=== PATIENT | female | born 1955 | race Caucasian/White ===

== ENCOUNTER 2017-08-15 17:43 | Emergency (ER) | payer BC ==
--- OUTSIDE RECORDS SUMMARY | 2017-08-15 18:09 | XMS REPORT ---
:1955 External Reference #:[id number] Author Organization [facility] Address [address] [place] [address] Phone [phone] Care Team Providers Name Role Phone Sosa Arteaga Care Team Information Director Metabolism Unavailable Sosa Arteaga Primary Care Physician Unavailable Payers Type Date Identification Numbers Payment Provider Subscriber Commercial Effective: Policy Number: [facility] Leyla Brito 2015 [id number] PayID: [id number] [address] [address] [place] [address] Medigap Part B Expires: 2015 Policy Number: [facility] Lauren Brito [id number] Exchange PayID: [id number] [address] [address] [place] [address] Problems Description No Information Family History Date Family Member(s) Problem(s) Comments First Brother due to Natural Causes () Social History Type Date Description Comments Marital Status moved to [place] in January 2015 to live closer to daughter Cigarette Use Never Smoked Cigarettes ETOH Use Denies alcohol use Allergies, Adverse Reactions, Alerts Date Description Reaction Status Severity Comments 09/07/2015 NKDA active 09/07/2015 Adhesives active Medications Medication Date Status Form Strength Qnty SIG Indications Ordering Provider Levothyroxine 07/11 Active Tablets 175mcg 90tab take one E03.9 s tablet by Markell, mouth [employer]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 as needed Clotrimazole/Bet 07/13 Active Cream 1-0.05% 45gm apply thin B35.4 Sosa LLeonardo amethasone /2016 layer Eliot Arteagaionate twice M.DLeonardo daili chest wall area. Albuterol 05/09 Active Nebulizer (2.5mg/3M 75ml inhale the J20.9 Mary Sulfate /2015 L) 0.083% contents Mala, of one Afnp-C vial via nebulizer four times a day as needed Aspirin Ec 12/[address] 81mg 100ta 1 by mouth Sosa LLeonardo bs every day Silvano Arteaga Hydrocodone-Acet 10/19 Active Tablets 5-325mg 30tab 1 by mouth J06.9 Raisa aminophen s 3 times Baldwin, daily as M.D. needed pain nt Escitalopram 09/07 Active Tablets 20mg 90tab 1 by mouth Cora Oxalate s daily MarkellSADIE palomino Metformin HCL 09/07 Active Tablets 500mg 180ta Take One Sosa LLeonardo bs Tablet By Adriel Arteaga M.DLeonardo Twice A Day Amitriptyline Active Tablets 100mg 270ta 3 tablets Cora HCL / bs at bedtime ASDIE Guillaume Glipizide XL Active Tablets ER 2.5mg 100ta Take One Sosa L. / 24HR bs Tablet By Adriel Arteaga M.DLeonardo Every Day Dulera Active Aerosol 200-5mcg/ 2 puff R05 Unknown /0000 Act twice a day Levothyroxine 03/19 Hx Tablets 175mcg 100ta take one E11.9 Sosa LLeonarod Sodium bs tablet by Chandler - mouth M.D. 07/11 every day /2016 Proair HFA 03/06 Hx Aerosol 108(90Bas 17gm 2 puffs Sosa LLeonardo e) every 4 Sarah Arteaga mcg/Act hours as M.D. 07/10 needed Azithromycin 03/06 Hx Tablets 250mg 6tabs 2 by mouth R05 Sosa L. /2016 today. 1 Chandler, - by mouth M.D. 07/10 daily x Trazodone HCL 10/29 Hx Tablets 50mg 60tab 1 -2 by G47.00 Cora s mouth Markell, - every COMPUTER COMPOSITOR 03/06 night at 2017 bedtime as needed insomnia Doxycycline 10/29 Hx Capsules 100mg 28cap take one J01.90 Cora Hyclate s capsule by Markell, - mouth COMPUTER COMPOSITOR 03/06 twice a /2016 day Cyclobenzaprine 07/16 Hx Tablets 10mg 20tab 1 by mouth [facility] Afnp-C 07/16 day as needed back pain Metaxalone 07/16 Hx Tablets 400mg 20tab 1 po tid Drea s prn back [facility], - pain Afnp-C 07/23 Naprosyn 06/08 Hx Tablets 500mg 20tab 1 twice a Joaquín Rico s day with Monica, - food M.D. 07/10 Symbicort 05/16 Hx Aerosol 160-4.5mc 6gm 2 puff g/Act twice a Mala, - day Afnp-C 10/29 Prednisone 05/09 Hx Tablets 20mg 9tabs 2 x 3 days J20.9 ,1 x 3 Mala, - days Afnp-C 05/15 Levofloxacin 05/09 Hx Tablets 500mg 7tabs 1 by mouth J20.9 every day Mala, - x 7 Afnp-C 05/16 Hydrocodone-Acet 05/09 Hx Tablets 5-325mg 120ta 1-2 tabs R51 Cora aminophen bs every 6 Markell, - hours as COMPUTER COMPOSITOR 07/10 needed for pain Levothyroxine 12/26 Hx Tablets 200mcg 90tab 1 by mouth E11.9 Sosa L. Sodium /2015 s every day Chandler - M.DLeonardo 03/19 Vitamin D 12/26 Hx Capsules [id number] 12cap take 1 E55.9 Sosa L. (Ergocalciferol) s capsule by Chandler, - mouth once M.D. 07/10 weekly for 8 weeks. Lisinopril 12/26 Hx Tablets 2.5mg 30tab 1 by mouth E11.9 Sosa L. s every day Sarah Arteaga M.D. 03/06 Azithromycin 10/19 Hx Tablets 250mg 6tabs take 2 J06.9 tablets by Robert, - mouth COMPUTER COMPOSITOR 12/26 today take 1 tablet daily for next 4 days Cheratussin ac 10/19 Hx Syrup 100-10mg/ 120ml 1-2 J06.9 5ML teaspoon Robert, - every 4 COMPUTER COMPOSITOR 12/26 hours needed Dulera 10/19 Hx Aerosol 200-5mcg/ 8.800 2 puff J06.9 Act gm twice a Mala, - day Afnp-C 05/16 Ciloxan 10/19 Hx Solution 0.3% 5ml 2 drop J06.9 affected Robert, - eye(s) COMPUTER COMPOSITOR 12/26 times a day for 2d then twice a day until clear december fill with generic Amoxicillin/Clav 09/21 Hx Tablets 875-125mg 20tab 1 by mouth J01.80 Sosa Pina ulrita /2015 s twice a Chandler Potassium - day x 1o M.DLeonardo No Active 09/07 Hx Unknown Medications /2015 - 09/07 Hydrocodone-Acet 09/07 Hx Tablets 5-325mg 60tab 1 by mouth M25.572 Sosa Pina aminophen /2015 s 4 times Chandler, - daily prn M.DLeonardo 10/19 pain Levothyroxine Hx Tablets 100mcg 100ta 1 by mouth Sosa Pina Sodium /0000 bs every day Sarah Arteaga M.D. 08/06 Levothyroxine Hx Tablets 88mcg 100ta 1 by mouth Sosa LLeonardo Sodium /0000 bs every day Sarah Arteaga M.D. 08/06 Alprazolam Hx Tablets 0.5mg 1-2 Four Unknown /0000 Dispers Times A - Day as 04/17 needed for anxiety Proair HFA 00/ Hx Aerosol 108(90Bas 2 puffs Unknown /0000 e) every 4 - mcg/Act hours as 10/29 Diazepam Hx Tablets 10mg Unknown /0000 - 03/06 Ventolin HFA 00 Hx Aerosol 108(90Bas inhale two R05 Unknown /0000 e) puffs by - mcg/Act mouth 03/06 every day /2016 to four times a day as directed Immunizations CPT Code Status Date Vaccine Lot # [id number] Given 07/11/2017 Pneumococcal Immunization [id number] Given 07/11/2017 Influenza vac quadrivalent preservative free 3yrs [id number] and up Vital Signs Date Vital Result Comment 08/14/2017 BP Systolic 168 mmHg BP Diastolic 92 mmHg Heart Rate 82 /min Body Temperature 97.8 F O2 % BldC Oximetry 90 % 07/11/2017 BP Systolic 148 mmHg BP Diastolic 84 mmHg Heart Rate 96 /min Body Temperature 97.7 F 03/06/2017 BP Systolic 130 mmHg BP Diastolic 80 mmHg Heart Rate 80 /min Body Temperature 98.1 F Respiratory Rate 18 /min 10/29/2016 BP Systolic 156 mmHg BP Diastolic 86 mmHg Heart Rate 96 /min Body Temperature 97.7 F 08/27/2016 BP Systolic 144 mmHg BP Diastolic 82 mmHg Heart Rate 92 /min Body Temperature 97.9 F Respiratory Rate 18 /min 08/06/2016 BP Systolic 144 mmHg BP Diastolic 84 mmHg Heart Rate 78 /min Body Temperature 97.5 F 07/16/2016 BP Systolic 144 mmHg BP Diastolic 80 mmHg Heart Rate 90 /min Body Temperature 97.3 F 06/08/2016 BP Systolic 178 mmHg BP Diastolic 98 mmHg Heart Rate 80 /min Body Temperature 98.5 F O2 % BldC Oximetry 98 % 05/09/2016 BP Systolic 150 mmHg BP Diastolic 70 mmHg Heart Rate 85 /min Body Temperature 97.5 F Respiratory Rate 26 /min O2 % BldC Oximetry 91 % 04/18/2016 BP Systolic 144 mmHg BP Diastolic 82 mmHg Heart Rate 80 /min Body Temperature 97.9 F Respiratory Rate 20 /min O2 % BldC Oximetry 97 % 03/06/2016 BP Systolic 140 mmHg BP Diastolic 80 mmHg Heart Rate 68 /min Body Temperature 98.3 F Respiratory Rate 20 /min 12/27/2015 BP Systolic 140 mmHg BP Diastolic 76 mmHg Heart Rate 76 /min Body Temperature 98.1 F Respiratory Rate 16 /min 10/19/2015 BP Systolic 136 mmHg BP Diastolic 80 mmHg Heart Rate 92 /min Body Temperature 98.2 F Respiratory Rate 22 /min O2 % BldC Oximetry 94 % 09/21/2015 BP Systolic 120 mmHg BP Diastolic 80 mmHg Heart Rate 80 /min Body Temperature 98.0 F Respiratory Rate 18 /min 09/07/2015 BP Systolic 110 mmHg BP Diastolic 80 mmHg Heart Rate 80 /min Body Temperature 99.0 F Respiratory Rate 18 /min Results Test Date Test Result H/L Range Note CBC Auto Diff 08/14/2017 White Blood Count 11.1 10^3/uL High 3.5-10.8 Red Blood Count 4.75 10^6/uL 4.0-5.4 Hemoglobin 14.0 g/dL 12.0-16.0 Hematocrit 42 % 35-47 Mean Corpuscular Volume 89 fL 80-97 Mean Corpuscular Hemoglobin 29 pg 27-31 Mean Corpuscular HGB Conc 33 g/dL 31-36 Red Cell Distribution Width 13 % 10.5-15 Platelet Count 263 10^3/uL 150-450 Mean Platelet Volume 8 um3 7.4-10.4 Abs Neutrophils 5.9 10^3/uL 1.5-7.7 Abs Lymphocytes 4.2 10^3/uL 1.0-4.8 Abs Monocytes 0.6 10^3/uL 0-0.8 Abs Eosinophils 0.3 10^3/uL 0-0.6 Abs Basophils 0.1 10^3/uL 0-0.2 Abs Nucleated RBC 0.01 10^3/uL Granulocyte % 53.6 % 38-83 Lymphocyte % 37.6 % 25-47 Monocyte % 5.4 % 1-9 Eosinophil % 2.7 % 0-6 Basophil % 0.7 % 0-2 Nucleated Red Blood Cells % 0 Laboratory test finding 08/14/2017 Troponin I 0.00 ng/mL <0.04 1 Comp Metabolic Panel 08/14/2017 Sodium 137 mmol/L 133-145 Potassium 4.5 mmol/L 3.5-5.0 Chloride 100 mmol/L Low 101-111 Co2 Carbon Dioxide 32 mmol/L 22-32 Anion Gap 5 mmol/L 2-11 Glucose 111 mg/dL High 70-100 Blood Urea Nitrogen 14 mg/dL 6-24 Creatinine 0.87 mg/dL 0.51-0.95 BUN/Creatinine Ratio 16.1 8-20 Calcium 9.1 mg/dL 8.6-10.3 Total Protein 6.8 g/dL 6.4-8.9 Albumin 3.9 g/dL 3.2-5.2 Globulin 2.9 g/dL 2-4 Albumin/Globulin Ratio 1.3 1-3 Total Bilirubin 0.40 mg/dL 0.2-1.0 Alkaline Phosphatase 97 U/L 34-104 Alt 26 U/L 7-52 Ast 21 U/L 13-39 Egfr Non- 65.8 >60 Egfr 84.6 >60 2 Laboratory test finding 07/11/2017 Hemoglobin A1c (Fma) 6.6 % High 4.1- 5.7 Ua - Micro (Fma) 07/11/2017 Appearance clear Color yellow Glucose, Urine (Fma/CMC/CTX) - Bilirubin - Ketones - SP Grav <=1.005 Blood - PH 6.5 Protein - Urobil 0.2 Nitrite - Leukocytes (Fma/CMC/Centrex) small Hyaline - /Lpf Granular - /Lpf WBC (Fma,Centrex) 2-4 RBC 0-1 Mucus - /Lpf Epith few /Lpf Bacteria trace /Hpf Amorphous - /Lpf Crystals, Fluid (Fma/CMC/CTX) - Laboratory test finding 07/11/2017 TSH 6.04 mIU/L High 0.50-6.00 Free T4 0.97 ng/dL 0.75-1.54 Complete Blood Count 07/11/2017 WBC 11.5 x10^3/UL High 3.6-9.6 RBC 4.82 x10^6/UL 3.90-5.70 HGB 14.2 g/dL 12.1-17.2 HCT 43 % 36-50 MCV 89.0 fL 82.2-97.4 MCH 29.4 pg 27.6-33.3 MCHC 33.0 g/dL 33.0-35.5 RDW 14.2 % High 11.6-13.7 PLT 301 x10^3/UL 150-400 MPV 7.2 fL Low 7.4-10.4 Gran # 7.1 x10^3/UL 1.5-7.2 Lymph# 4.0 x10^3/UL 0.7-4.9 Mccracken# 0.4 x10^3/UL 0.1-0.9 Gran % 60.3 % 42.2-75.2 Lymph % 35.5 % 20.5-51.1 Mccracken% 4.2 % 1.7-9.3 Comprehensive Metabolic Prof 07/11/2017 Sodium 143 mEq/L 134-149 Potassium 4.0 mEq/L 3.6-5.5 Chloride 100 mEq/L 94-112 Carbon Dioxide 29 mEq/L 21-32 Glucose 109 mg/dL High 70-105 3 BUN 11 mg/dL 6-26 Creatinine 0.9 mg/dL 0.6-1.4 BUN/Creat Ratio 12.2 CALC 8.0-36.0 Calcium 9.1 mg/dL 8.6-10.2 Total Protein 7.1 g/dL 6.4-8.3 Albumin 4.3 g/dL 3.8-5.5 Globulin 2.8 g/dL 2.0-4.8 A/G Ratio 1.5 CALC 0.6-2.3 Alk. Phosphatase 107 U/L 30-110 Alt (SGPT) 38 U/L High 7-35 4 Ast (Sgot) 33 U/L 5-34 Total Bilirubin 0.2 mg/dL 0.2-1.3 GFR Non- >60 ml/min/1.73m^ >=60 GFR >60 ml/min/1.73m^ >=60 Laboratory test finding 03/06/2017 Microalb, Random 10.4 mg/L 0.5-37 (Fma/CMC/CTX) Hemoglobin A1c (Fma) 6.5 % % High 4.1-5.7 Lipid Profile 03/06/2017 Cholesterol 214 mg/dL High 120-200 Triglycerides 181 mg/dL 30-200 HDL Cholesterol 41 mg/dL 30-85 LDL (Calculated) 137 CALC High 0-129 VLDL Cholesterol 36 mg/dL 0-50 HDL Risk Factor 5.2 CALC High 0.0-4.4 Laboratory test finding 03/06/2017 TSH 0.08 mIU/L Low 0.50-6.00 5 Complete Blood Count 03/06/2017 WBC 9.3 x10^3/UL 3.6-9.6 RBC 4.99 x10^6/UL 3.90-5.70 HGB 14.7 g/dL 12.1-17.2 HCT 44 % 36-50 MCV 88.0 fL 82.2-97.4 MCH 29.4 pg 27.6-33.3 MCHC 33.3 g/dL 33.0-35.5 RDW 13.8 % High 11.6-13.7 PLT 295 x10^3/UL 150-400 MPV 7.1 fL Low 7.4-10.4 Gran # 5.9 x10^3/UL 1.5-7.2 Lymph# 2.8 x10^3/UL 0.7-4.9 Mccracken# 0.6 x10^3/UL 0.1-0.9 Gran % 63.0 % 42.2-75.2 Lymph % 30.2 % 20.5-51.1 Mccracken% 6.8 % 1.7-9.3 Comprehensive Metabolic Prof 03/06/2017 Sodium 138 mEq/L 134-149 Potassium 4.9 mEq/L 3.6-5.5 Chloride 98 mEq/L 94-112 Carbon Dioxide 27 mEq/L 21-32 Glucose 117 mg/dL High 70-105 6 BUN 9 mg/dL 6-26 Creatinine 0.8 mg/dL 0.6-1.4 BUN/Creat Ratio 11.3 CALC 8.0-36.0 Calcium 9.4 mg/dL 8.6-10.2 Total Protein 6.7 g/dL 6.4-8.3 Albumin 4.2 g/dL 3.8-5.5 Globulin 2.5 g/dL 2.0-4.8 A/G Ratio 1.7 CALC 0.6-2.3 Alk. Phosphatase 104 U/L 30-110 Alt (SGPT) 30 U/L 7-35 Ast (Sgot) 23 U/L 5-34 Total Bilirubin 0.4 mg/dL 0.2-1.3 GFR Non- >60 ml/min/1.73m^ >=60 GFR >60 ml/min/1.73m^ >=60 Laboratory test finding 08/06/2016 Antinuclear Antibodies, Ifa Negative 7, 8 Laboratory test finding 08/06/2016 Sedimentation Rate 16MM Lyme, Western Blot, Serum 04/18/2016 IgG P93 Ab. Absent 9 IgG P66 Ab. Absent 9 IgG P58 Ab. Absent 9 IgG P45 Ab. Present 9 IgG P41 Ab. Absent 9 IgG P39 Ab. Absent 9 IgG P30 Ab. Absent 9 IgG P28 Ab. Absent 9 IgG P23 Ab. Absent 9 IgG P18 Ab. Absent 9 Lyme IgG WB Interp. Negative 9, 10 IgM P41 Ab. Absent 9 IgM P39 Ab. Absent 9 IgM P23 Ab. Absent 9 Lyme IgM WB Interp. Negative 9, 11 Laboratory test finding 02/29/2016 TSH 3.96 mIU/L 0.50-6.00 12 Free T4 1.01 ng/dL 0.75-1.54 Lipid Profile 02/29/2016 Cholesterol 232 mg/dL High 120-200 Triglycerides 201 mg/dL High 30-200 HDL Cholesterol 33 mg/dL 30-85 LDL (Calculated) 159 CALC High 0-129 VLDL Cholesterol 40 mg/dL 0-50 HDL Risk Factor 7.0 CALC High 0.0-4.4 Comprehensive Metabolic Prof 01/10/2016 Sodium 140 mEq/L 134-149 Potassium 4.4 mEq/L 3.6-5.5 Chloride 95 mEq/L 94-112 Carbon Dioxide 30 mEq/L 21-32 Glucose 122 mg/dL High 70-105 13 BUN 13 mg/dL 6-26 Creatinine 1.0 mg/dL 0.6-1.4 BUN/Creat Ratio 13.0 CALC 8.0-36.0 Calcium 8.9 mg/dL 8.6-10.2 Total Protein 6.8 g/dL 6.4-8.3 Albumin 4.1 g/dL 3.8-5.5 Globulin 2.7 g/dL 2.0-4.8 A/G Ratio 1.5 CALC 0.6-2.3 Alk. Phosphatase 114 U/L High 30-110 14 Alt (SGPT) 55 U/L High 7-35 15 Ast (Sgot) 44 U/L High 5-34 16 Total Bilirubin 0.2 mg/dL 0.2-1.3 GFR Non- 60 ml/min/1.73m^ >=60 GFR >60 ml/min/1.73m^ >=60 Complete Blood Count 10/19/2015 WBC 9.6 x10^3/UL 3.6-9.6 RBC 4.45 x10^6/UL 3.90-5.70 HGB 13.7 g/dL 12.1-17.2 HCT 40 % 36-50 MCV 91.0 fL 82.2-97.4 MCH 30.8 pg 27.6-33.3 MCHC 33.9 g/dL 33.0-35.5 RDW 14.1 % High 11.6-13.7 PLT 249 x10^3/UL 150-400 MPV 6.8 fL Low 7.4-10.4 Gran # 5.8 x10^3/UL 1.5-7.2 Lymph# 3.3 x10^3/UL 0.7-4.9 Mccracken# 0.5 x10^3/UL 0.1-0.9 Gran % 59.3 % 42.2-75.2 Lymph % 34.8 % 20.5-51.1 Mccracken% 5.9 % 1.7-9.3 Ebv Acute Infection 10/19/2015 Ebv Ab Vca, IgM >160.0 U/mL High 0.0- 35.9 9, 17 Antibodies Profile Ebv Early Antigen Ab, IgG 69.9 U/mL High 0.0-8.9 9, 18 Ebv Ab Vca, IgG 186.0 U/mL High 0.0-17.9 9, 19 Ebv Nuclear Antigen Ab, IgG 161.0 U/mL High 0.0-17.9 9, 20 Interpretation: See Comment: 9, 21 Laboratory test finding 09/26/2015 TSH 19.38 mIU/L High 0.50-6.00 22 Free T4 0.86 ng/dL 0.75-1.54 Vitamin D25 18 Low 30-100 23 Laboratory test finding 09/26/2015 Hemoglobin A1c (Fma) 6.8 % High 4.1- 5.7 Complete Blood Count 09/26/2015 WBC 10.7 x10^3/UL High 3.6-9.6 24 RBC 4.38 x10^6/UL 3.90-5.70 HGB 13.0 g/dL 12.1-17.2 HCT 40 % 36-50 MCV 91.0 fL 82.2-97.4 MCH 29.8 pg 27.6-33.3 MCHC 33.0 g/dL 33.0-35.5 RDW 14.0 % High 11.6-13.7 PLT 275 x10^3/UL 150-400 MPV 6.2 fL Low 7.4-10.4 Gran # 7.2 x10^3/UL 1.5-7.2 Lymph# 3.1 x10^3/UL 0.7-4.9 Mccracken# 0.4 x10^3/UL 0.1-0.9 Gran % 66.3 % 42.2-75.2 Lymph % 29.2 % 20.5-51.1 Mccracken% 4.5 % 1.7-9.3 Lipid Profile 09/26/2015 Cholesterol 228 mg/dL High 120-200 Triglycerides 212 mg/dL High 30-200 HDL Cholesterol 40 mg/dL 30-85 LDL (Calculated) 146 CALC High 0-129 VLDL Cholesterol 42 mg/dL 0-50 HDL Risk Factor 5.7 CALC High 0.0-4.4 Comprehensive Metabolic Prof 09/26/2015 Sodium 136 mEq/L 134-149 Potassium 3.8 mEq/L 3.6-5.5 Chloride 94 mEq/L 94-112 Carbon Dioxide 31 mEq/L 21-32 Glucose 142 mg/dL High 70-105 BUN 18 mg/dL 6-26 Creatinine 0.9 mg/dL 0.6-1.4 BUN/Creat Ratio 20.0 CALC 8.0-36.0 Calcium 9.3 mg/dL 8.6-10.2 Total Protein 7.0 g/dL 6.4-8.3 Albumin 4.0 g/dL 3.8-5.5 Globulin 3.0 g/dL 2.0-4.8 A/G Ratio 1.3 CALC 0.6-2.3 Alk. Phosphatase 118 U/L High 30-110 Alt (SGPT) 56 U/L High 7-35 Ast (Sgot) 73 U/L High 5-34 Total Bilirubin 0.3 mg/dL 0.2-1.3 GFR Non- >60 ml/min/1.73m^ >=60 GFR >60 ml/min/1.73m^ >=[address] ARTEAGA [phone] PATIENT CELL NUMBER [phone] ARTEAGA by [id number] at [phone] on 08/14/17. Results read back accurately. 2 Because ethnic data is not always readily available, this report includes an eGFR for both -Americans and non- Americans. The National Kidney Disease Education Program (NKDEP) does not endorse the use of the MDRD equation for patients that are not between the ages of 18 and 70, are , have extremes of body size, muscle mass, or nutritional status, or are non- or non-. According to the National Kidney Foundation, irrespective of diagnosis, the stage of the disease is based on the level of kidney function: Stage Description GFR(mL/min/1.73 m(2)) 1 Kidney damage with normal or decreased GFR 90 2 Kidney damage with mild decrease in GFR 60-89 3 Moderate decrease in GFR 30-59 4 Severe decrease in GFR 15-29 5 Kidney failure <15 (or dialysis) 3 RESULTS VERIFIED BY REPEAT ANALYSIS 4 RESULTS VERIFIED BY REPEAT ANALYSIS 5 RESULTS VERIFIED BY REPEAT ANALYSIS 6 consistent w/ previous results 7 1 sst 8 Negative <1:80 Borderline 1:80 Positive >1:80 9 1 SST 10 Positive: 5 of the following Borrelia-specific bands: 18,23,28,30,39,41,45,58, 66, and 93. Negative: No bands or banding patterns which do not meet positive criteria. 11 Note: An equivocal or positive EIA result followed by a negative Western Blot result is considered NEGATIVE. An equivocal or positive EIA result followed by a positive Western Blot is considered POSITIVE by the CDC. Positive: 2 of the following bands: 23,39 or 41 Negative: No bands or banding patterns which do not meet positive criteria. Criteria for positivity are those recommended by CDC/ASTPHLD. p23=Osp C, j07=[id number] Note: Sera from individuals with the following may cross react in the Lyme Western Blot assays: other spirochetal diseases (periodontal disease, leptospirosis, relapsing fever, yaws, and pinta); connective autoimmune (Rheumatoid Arthritis and Systemic Lupus Erythematosus and also individuals with Antinuclear Antibody); other infections ([place] Spotted Fever; Gladys-Cedillo Virus, and Cytomegalovirus). 12 FASTING early February. 13 NON-FASTING 14 consistent w/ previous results 15 consistent w/ previous results 16 consistent w/ previous results 17 Negative <36.0 Equivocal 36.0 - 43.9 Positive >43.9 18 Hepatitis A, Hepatitis C and HIV antibodies may cross-react with this assay. Negative < 9.0 Equivocal 9.0 - 10.9 Positive >10.9 19 Negative <18.0 Equivocal 18.0 - 21.9 Positive >21.9 20 Negative <18.0 Equivocal 18.0 - 21.9 Positive >21.9 21 EBV Interpretation Chart Interpretation EBV-IgM EA(D)-IgG VCA-IgG EBNA-IgG EBV Seronegative - - - - Early Phase + - - - Acute Primary + +or- + - Infection Convalescence/Past - +or- + + Infection Reactivated +or- + + + Infection + Antibody Present - Antibody Absent 22 RESULTS VERIFIED BY REPEAT ANALYSIS 23 RESULTS VERIFIED BY REPEAT ANALYSIS 24 RESULTS VERIFIED BY REPEAT ANALYSIS Procedures Date CPT Code Description Status Comment 08/14/2017 39662 Electrocardiogram Complete Completed 08/25/2016 Colonoscopy Completed never had one. declined 08/25/2016 Mammogram Completed unknown. They hurt too much due to large breasts. 06/08/2016 36139 Pulse Oximetry Completed 06/08/2016 86182 Electrocardiogram Complete Completed 05/09/2016 40969 Pulse Oximetry Completed 05/09/2016 84353 Nebulizer Treatment Completed Encounters Type Date Location Provider CPT E/M Dx Office Visit 07/11/2017 11:00a [facility] Office Cora Guillaume [facility] 76106 E03.9 R10.84 R11.0 Z23 E11.9 R82.99 Office Visit 03/06/2017 1:40p [facility] Office Sosa Arteaga M.D. 46643 E11.9 M79.601 R05 R19.7 B35.4 Office Visit 10/29/2016 9:30a [facility] Office Cora Guillaume [facility] 68893 J01.90 R05 G47.00 F34.1 Office Visit 08/27/2016 10:00a [facility] Office Cora Guillaume [facility] 42619 F43.0 R07.89 R07.82 R21 Office Visit 08/06/2016 11:30a [facility] Office Cora Guillaume [facility] 20852 R21 R07.82 R07.89 F43.0 Office Visit 07/16/2016 11:30a [facility] Office Cipriano Blue 17940 M54.6 R21 Office Visit 06/08/2016 12:20p [facility] Office Joaquín Anderson M.D. 32125 R05 M89.8x8 Office Visit 05/09/2016 10:15a [facility] Aminta Raya-C 77654 R05 J20.9 R51 J45.21 Office Visit 04/18/2016 10:20a [facility] Sosa Arteaga M.D. 05015 H92.03 A69.20 Office Visit 03/06/2016 3:00p [facility] Sosa Arteaga M.D. 94312 E03.9 E11.9 R03.0 Office Visit 12/27/2015 10:40a [facility] Office Sosa Arteaga M.D. 33140 E03.9 E11.9 E55.9 F44.81 E78.2 Office Visit 10/19/2015 9:30a [facility] Danelle Jones [facility] 62056 J06.9 Office Visit 09/21/2015 3:20p [facility] Office Sosa Arteaga M.D. 96062 J01.80 M79.672 R29.6 Office Visit 09/07/2015 1:00p [facility] Office Sosa Arteaga M.D. 77552 M25.572 F44.81 E11.9 E03.9 E55.9 Plan of Care 08/14/2017 - Sosa Arteaga M.D.R07.89 Other chest painComments:EKG - normal ekg. YOu efren go to the hospital to get bloodwork done to find out if you are having a heart attack. If it is positive you will need to go to the ER. Troponin negative. patient aware. Will get xrays tomorrow.F43.22 Adjustment disorder with anxietyComments:~B_~U_Wired for Healing~u_~b_, Suzy Tejada. Remapping the brain to REcover from Chronic and Mysterious illness.M54.12 Radiculopathy, cervical regionComments:possible problem in your neck. will order neck xray. and MRI of neck. take the hydrocodone for severe pain, otherwise you can use tylenol 500 mg and ibuprofen with food in your stomach. 8AllComments:~B_~U_Medication Management~b_~u_ Patient Understands medications she's taking? Yes No Are there Barriers to Adherence? Yes No Has the patient been asked about herbal supplements and therapies, and OTC meds? Yes No
[2017-08-15] MEDS ORDERED: HYDROmorphone INJ* 2 MG/ML CARPUJECT SYRINGE IV SLOW PU ONE (18:42)
[2017-08-15] MEDS ORDERED: Ketorolac INJ* 30 MG/ML 1 ML VIAL IV ONE (18:42)
--- NOTE | 2017-08-15 19:25 | RAD ---
INDICATION: Left arm pain COMPARISON: Cervical spine August 13, 2017 TECHNIQUE: Noncontrast axial source images was performed from the skull base to the thoracic inlet. Coronal and and sagittal reformatted images were generated. FINDINGS: Vertebrae: There is no fracture or acute focal bony lesion. Alignment: The craniocervical junction appears normal. The cervical vertebrae are normally aligned. Central Canal: There is a small central disc at C2-C3. C3-C4 shows posterior spondylitic ridge formation with disc/osteophyte complex. C4-C5 shows a small central disc herniation. C5-C6 shows moderate disc space narrowing with mild posterior spondylitic ridge formation and uncinate process spurring. C6-C7 and C7-T1 show no significant CT abnormalities. MR imaging is a more sensitive method to evaluate the canal and foramina in this patient with radicular symptoms. Intervertebral disc spaces: The disc spaces are maintained. Brain: The visualized brain appears unremarkable. Soft tissues: The visualized soft tissue elements of the neck are unremarkable. The prevertebral soft tissues appear normal. The lung apices are clear. IMPRESSION: NO ACUTE CT FINDINGS. MULTILEVEL DEGENERATIVE CHANGES OF THE CERVICAL SPINE DESCRIBED
[2017-08-15 19:27] LABS: Hematocrit 40 % (35-47); Hemoglobin 13.4 g/dl (12.0-16.0); Mean Corpuscular HGB Conc 33 g/dl (31-36); Mean Corpuscular Hemoglobin 30 pg (27-31); Mean Corpuscular Volume 89 fL (80-97); Mean Platelet Volume 8 um3 (7.4-10.4); Red Blood Count 4.55 10^6/ul (4.0-5.4); Red Cell Distribution Width 14 % (10.5-15); White Blood Count 10.8 10^3/ul (3.5-10.8)
[2017-08-15 19:43] LABS: Albumin 3.6 g/dL (3.2-5.2); Calcium 8.7 mg/dL (8.6-10.3); EGFR African American 78.3 (>60); EGFR Non-African American 60.9 (>60); Globulin 2.7 g/dL (2-4); Total Bilirubin 0.3 mg/dL (0.2-1.0); Total Protein 6.3 g/dL (6.4-8.9)
[2017-08-15 20:42] VITALS: BP 140/59
--- NOTE | 2017-08-15 21:53 | ED ---
Wally Carballo Stephanie, scribed for Javier Pérez MD on 08/15/17 at 2153 . Complex/Multi-Sys Presentation - HPI Summary HPI Summary: Pt is a 62 y/o F presenting to the ED with c/o intermittent CP that began 1 week ago. Symptoms include pain in the arm, hand pain, neck pain, headache, and diffuse pain throughout the left side of the body. The pt describes the pain as a severe ache. She lives with daily pain but it has worsened over the past week. Pt reports that the pain is excruciating and wakes her up at night. Pt has self-medicated with Excedrin migraine. Pt denies abd pain. - History Of Current Complaint Chief Complaint: EDChestWallPain Time Seen by Provider: 08/15/17 18:12 Hx Obtained From: Patient, Family/Gis Programmer Timing: Constant Associated Signs And Symptoms: Positive: Other - Positive: arm pain, hand pain, neck pain, headache, and diffuse pain throughout the left side of the body. Negative: abd pain - Allergies/Home Medications Allergies/Adverse Reactions: Allergies Allergy/AdvReac Type Severity Reaction Status Date / Time Adhesive Tape Allergy See Comment Verified 08/22/15 14:43 PMH/Surg Hx/FS Hx/Imm Hx Endocrine/Hematology History: Reports: Hx Diabetes - Type two, Hx Thyroid Disease - partial thyroidectomy Cardiovascular History: Denies: Hx Hypertension Respiratory History: Reports: Hx Asthma - WHEN PT HAS A COLD Denies: Hx Chronic Obstructive Pulmonary Disease (COPD) GI History: Denies: Hx Ulcer - Surgical History Surgery Procedure, Year, and Place: Partial thyroidectomy, C sections x2, Appendectomy, Right ovary and tube removal, Gallbladder Infectious Disease History: No Infectious Disease History: Reports: Hx Shingles - x3 left thigh, recent Denies: Hx Clostridium Difficile, Hx Hepatitis, Hx Human Immunodeficiency Virus (HIV), Hx of Known/Suspected MRSA, Hx Tuberculosis, Hx Known/Suspected VRE , Hx Known/Suspected VRSA, History Other Infectious Disease, Traveled Outside the [place] in Last 30 Days - Family History Known Family History: Positive: Hypertension, Diabetes - Social History Alcohol Use: Rare Substance Use Type: Reports: None Smoking Status (MU): Never Smoked Tobacco Review of Systems Negative: Fever Negative: Abdominal Pain Positive: Myalgia - pain in the arm, hand pain, neck pain, headache, and diffuse pain throughout the left side of the body All Other Systems Reviewed And Are Negative: Yes Physical Exam - Summary Physical Exam Summary: Appearance: Anxious, morbidly obese Skin: warm, dry, reflects adequate perfusion Head/face: normal Eyes: EOMI, RHETT ENT: normal Neck: supple, no midline tenderness in neck. Respiratory: CTA, breath sounds present Cardiovascular: RRR, pulses symmetrical Abdomen: non-tender, soft Bowel: present Musculoskeletal: Diffuse tenderness to palpation in arm without focal dermatome. , strength/ROM intact Neuro: normal, sensory motor intact, A&Ox3 Triage Information Reviewed: Yes Vital Signs On Initial Exam: Initial Vitals Temp Pulse Resp BP Pulse Ox 97.9 F 90 20 175/81 96 08/15/17 17:45 08/15/17 17:45 08/15/17 17:45 08/15/17 17:45 08/15/17 17:45 Vital Signs Reviewed: Yes - Saira Coma Scale Coma Scale Total: 15 Diagnostics - Vital Signs Vital Signs Temp Pulse Resp BP Pulse Ox 08/15/17 18:30 95 14 180/80 96 08/15/17 18:28 187/84 08/15/17 17:45 97.9 F 90 20 175/81 96 - Laboratory Lab Results: Lab Results 08/15/17 08/15/17 08/15/17 Range/Units 19:10 19:10 19:10 WBC 10.8 (3.5-10.8) 10^3/ul RBC 4.55 (4.0-5.4) 10^6/ul Hgb 13.4 (12.0-16.0) g/dl Hct 40 (35-47) % MCV 89 (80-97) fL MCH 30 (27-31) pg MCHC 33 (31-36) g/dl RDW 14 (10.5-15) % Plt Count 236 (150-450) 10^3/ul MPV 8 (7.4-10.4) um3 Neut % (Auto) 52.4 (38-83) % Lymph % (Auto) 38.2 (25-47) % [place] % (Auto) 5.5 (1-9) % Eos % (Auto) 3.2 (0-6) % Baso % (Auto) 0.7 (0-2) % Absolute Neuts (auto) 5.7 (1.5-7.7) 10^3/ul Absolute Lymphs (auto) 4.1 (1.0-4.8) 10^3/ul Absolute Monos (auto) 0.6 (0-0.8) 10^3/ul Absolute Eos (auto) 0.3 (0-0.6) 10^3/ul Absolute Basos (auto) 0.1 (0-0.2) 10^3/ul Absolute Nucleated RBC 0 10^3/ul Nucleated RBC % 0 Sodium 137 (133-145) mmol/L Potassium 4.0 (3.5-5.0) mmol/L Chloride 102 (101-111) mmol/L Carbon Dioxide 28 (22-32) mmol/L Anion Gap 7 (2-11) mmol/L BUN 13 (6-24) mg/dL Creatinine 0.93 (0.51-0.95) mg/dL Est GFR ( Amer) 78.3 (>60) Est GFR (Non-Af Amer) 60.9 (>60) BUN/Creatinine Ratio 14.0 (8-20) Glucose 154 H (70-100) mg/dL Lactic Acid (0.5-2.0) mmol/L Calcium 8.7 (8.6-10.3) mg/dL Total Bilirubin 0.30 (0.2-1.0) mg/dL AST 19 (13-39) U/L ALT 24 (7-52) U/L Alkaline Phosphatase 87 (34-104) U/L CK-MB (CK-2) 2.1 (0.6-6.3) ng/mL Troponin I 0.00 (<0.04) ng/mL B-Natriuretic Peptide 12 ( - 100) pg/mL Total Protein 6.3 L (6.4-8.9) g/dL Albumin 3.6 (3.2-5.2) g/dL Globulin 2.7 (2-4) g/dL Albumin/Globulin Ratio 1.3 (1-3) 08/15/ Range/Units 19:10 WBC (3.5-10.8) 10^3/ul RBC (4.0-5.4) 10^6/ul Hgb (12.0-16.0) g/dl Hct (35-47) % MCV (80-97) fL MCH (27-31) pg MCHC (31-36) g/dl RDW (10.5-15) % Plt Count (150-450) 10^3/ul MPV (7.4-10.4) um3 Neut % (Auto) (38-83) % Lymph % (Auto) (25-47) % [place] % (Auto) (1-9) % Eos % (Auto) (0-6) % Baso % (Auto) (0-2) % Absolute Neuts (auto) (1.5-7.7) 10^3/ul Absolute Lymphs (auto) (1.0-4.8) 10^3/ul Absolute Monos (auto) (0-0.8) 10^3/ul Absolute Eos (auto) (0-0.6) 10^3/ul Absolute Basos (auto) (0-0.2) 10^3/ul Absolute Nucleated RBC 10^3/ul Nucleated RBC % Sodium (133-145) mmol/L Potassium (3.5-5.0) mmol/L Chloride (101-111) mmol/L Carbon Dioxide (22-32) mmol/L Anion Gap (2-11) mmol/L BUN (6-24) mg/dL Creatinine (0.51-0.95) mg/dL Est GFR ( Amer) (>60) Est GFR (Non-Af Amer) (>60) BUN/Creatinine Ratio (8-20) Glucose (70-100) mg/dL Lactic Acid 2.2 H* (0.5-2.0) mmol/L Calcium (8.6-10.3) mg/dL Total Bilirubin (0.2-1.0) mg/dL AST (13-39) U/L ALT (7-52) U/L Alkaline Phosphatase (34-104) U/L CK-MB (CK-2) (0.6-6.3) ng/mL Troponin I (<0.04) ng/mL B-Natriuretic Peptide ( - 100) pg/mL Total Protein (6.4-8.9) g/dL Albumin (3.2-5.2) g/dL Globulin (2-4) g/dL Albumin/Globulin Ratio (1-3) Result Diagrams: 08/15/17 19:10 08/15/17 19:10 Lab Statement: Any lab studies that have been ordered have been reviewed, and results considered in the medical decision making process. - CT Cervicle Spine CT Interpretation: No Acute Changes CT Interpretation Completed By: Radiologist - NO ACUTE CT FINDINGS. MULTILEVEL DEGENERATIVE CHANGES OF THE CERVICAL SPINE DESCRIBED Complex Multi-Symp Course/Dx Course Of Treatment: pt with constant pain for some time, worse today. Mostly in the L arm, but not confined to a dermatome. Possibly radicular, told to come for an MRI. MRI not available, arm is neurologically intact. CT shows no acute disc. Pain treated with full relief. Very atypical for chest cause. Sats 100 and ECG here and at PMD neg over last 2 days. Also had 2 troponins a day apart that are 0. Tx with steroid, nsaid and muscle relaxer and refer back to PMD for further eval. Also suggested caretaker grounds. - Diagnoses Differential Diagnoses/HQI/PQRI: Other - Muscular, nerve related, Cardiac, Pneumonia. Provider Diagnoses: Cervical radiculopathy, Atypical chest pain Discharge - Discharge Plan Condition: Good Disposition: HOME Prescriptions: Cyclobenzaprine HCl [Flexeril 5 mg (NF)] 5 mg PO TID PRN #15 tab PRN Reason: muscle pain Methylprednisolone [Medrol Dosepak 4 MG*] 0 mg PO .SEE MARTINEZ INSTRUCTION #1 packet Naproxen [Naproxen 500 mg] 500 mg PO BID #10 tab Patient Education Materials: Cervical Radiculopathy (ED) Referrals: Sosa Arteaga MD [Primary Care Provider] - Additional Instructions: See a chiropractor. Call your doctor on Friday. They will need to schedule MRI. Return if worse, uncontrolled pain, new symptoms or other concerns. The documentation as recorded by the Wally cook Stephanie accurately reflects the service I personally performed and the decisions made by , Javier Pérez MD.
== END 2017-08-15 21:02 | disposition home or self-care (01) ==
LOC: ED 17:43
DX: R07.89 Other chest pain (principal); M47.22 Other spondylosis with radiculopathy, cervical region
CPT/HCPCS: 36415; 72125; 80053; 82553; 83605; 83880; 84484; 85025; 93005; 96374; 96375; 99282; J1170; J1885

== ENCOUNTER 2018-06-28 19:53 | Emergency (ER) | payer BC, OTHER ==
[2018-06-28] MEDS ORDERED: oxyCODONE/Acetamin 5/325 MG* TAB PO ONE (23:29)
[2018-06-28] MEDS ORDERED: Tetan/Diph/Pertus SYR(Tdap)* 0.5 ML SYR(BOOSTRIX) use SYR IM ONE (23:33)
[2018-06-28] MEDS ORDERED: Lidocaine 2% EPI 1:200000 MPF*10-20 ML VIAL ONE (23:37)
--- NOTE | 2018-06-29 00:02 | ED ---
Laceration/Wound HPI - HPI Summary HPI Summary: The pt is a 63 y.o female presenting to the [facility] with a chief complaint of head laceration s/p fall at 1830. The pt describes the fall as a fall up the stairs where her head hit a wooden desk. She reports bleeding at the middle of the forehead, right hand pain and YUEN. She denies LOC. The symptoms are aggravated by nothing and the symptoms are alleviated by nothing. The pain is rated to be a 8/10. - History of Current Complaint Stated Complaint: FALL/HEAD INJURY/LT LEG AND TOE/RT FINGER Time Seen by Provider: 06/28/18 23:15 Hx Obtained From: Patient Onset/Duration: Sudden Onset Onset Severity: Severe Current Severity: Severe Pain Intensity: 8 Pain Scale Used: 0-10 Numeric Associated Signs & Symptoms: Negative - Allergy/Home Medications Allergies/Adverse Reactions: Allergies Allergy/AdvReac Type Severity Reaction Status Date / Time Adhesive Tape Allergy See Comment Verified 06/28/18 23:29 cephalexin [From Keflex] Allergy Rash Verified 06/28/18 23:29 PMH/Surg Hx/FS Hx/Imm Hx Endocrine/Hematology History: Reports: Hx Diabetes - Type two, Hx Thyroid Disease - partial thyroidectomy Cardiovascular History: Denies: Hx Hypertension Respiratory History: Reports: Hx Asthma - WHEN PT HAS A COLD Denies: Hx Chronic Obstructive Pulmonary Disease (COPD) GI History: Denies: Hx Ulcer - Surgical History Surgery Procedure, Year, and Place: Partial thyroidectomy, C sections x2, Appendectomy, Right ovary and tube removal, Gallbladder Infectious Disease History: No Infectious Disease History: Reports: Hx Shingles - x3 left thigh, recent Denies: Hx Clostridium Difficile, Hx Hepatitis, Hx Human Immunodeficiency Virus (HIV), Hx of Known/Suspected MRSA, Hx Tuberculosis, Hx Known/Suspected VRE , Hx Known/Suspected VRSA, History Other Infectious Disease, Traveled Outside the [place] in Last 30 Days - Family History Known Family History: Positive: Hypertension, Diabetes - Social History Alcohol Use: Rare Substance Use Type: Reports: None Smoking Status (MU): Never Smoked Tobacco Review of Systems Constitutional: Negative Eyes: Negative ENT: Negative Cardiovascular: Negative Respiratory: Negative Gastrointestinal: Negative Genitourinary: Negative Musculoskeletal: Other - Right Hand pain Skin: Other - Laceration at the middle of the forehead with bleeding. Positive: Headache. Negative: Syncope Psychological: Normal All Other Systems Reviewed And Are Negative: Yes Physical Exam - Summary Physical Exam Summary: VITAL SIGNS: Reviewed. GENERAL: Patient is a well-developed and nourished (FEMALE) who is lying comfortable in the stretcher. Patient is not in any acute respiratory distress. HEAD AND FACE: No ecchymosis, hematomas or skull depressions. No sinus tenderness. EYES: PERRLA, EOMI x 2, No injected conjunctiva, no nystagmus. EARS: Hearing grossly intact. Ear canals and tympanic membranes are within normal limits. MOUTH: Oropharynx within im limits. NECK: Supple, trachea is midline, no adenopathy, no JVD, no carotid bruit, no c- spine tenderness, neck with full ROM. CHEST: Symmetric, no tenderness at palpation LUNGS: Clear to auscultation bilaterally. No wheezing or crackles. CVS: Regular rate and rhythm, S1 and S2 present, no murmurs or gallops appreciated. ABDOMEN: Soft, non-tender. No signs of distention. No rebound no guarding, and no masses palpated. Bowel sounds are normal. EXTREMITIES: FROM in all major joints, no edema, no cyanosis or clubbing. NEURO: Alert and oriented x 3. No acute neurological deficits. Speech is normal and follows commands. SKIN: Two cm vertical laceration middle of forehead With minimal bifurcation Proximally Triage Information Reviewed: Yes Vital Signs On Initial Exam: Initial Vitals Temp Pulse Resp BP Pulse Ox 98.2 F 97 20 161/85 93 06/28/18 20:06 06/28/18 20:06 06/28/18 20:06 06/28/18 20:06 06/28/18 20:06 Vital Signs Reviewed: Yes Procedures - Laceration/Wound Repair 1 Location: head Anesthesia: Local - 3 cc, 2.0%, Lido, Epi Irrigated w/ Saline (ccs): 100 Closure: Single Layer Suture Type: Nylon Number of Sutures: 10 Diagnostics - Vital Signs Vital Signs Temp Pulse Resp BP Pulse Ox 06/28/18 23:41 16 06/28/18 22:27 98.5 F 91 18 188/86 96 06/28/18 20:06 98.2 F 97 20 161/85 93 - Laboratory Lab Statement: Any lab studies that have been ordered have been reviewed, and results considered in the medical decision making process. - Radiology Hand X-ray Radiology Interpretation Completed By: ED Physician - The Hand X-ray reveals negative findings as per ED Physician. - CT Brain CT CT Interpretation Completed By: Radiologist - Brain CT reveals No acute intracranial pathology as per radiology report. ED physician has reviewed this radiology report. Laceration Repair Course/Dx - Course Course Of Treatment: The pt is a 63 y.o female with a chief complaint of head laceration. A brain CT And hand X-ray were taken. The pt also complains of right hand pain as well as a headache. The dx will be Head injury; Head Laceration. The pt will be discharged home with wound care instruction and also instruction of the removal of the stitches in 7 days. - Clinical Impression Provider Diagnoses: Head injury, Laceration of head Discharge - Sign-Out/Discharge Documenting (check all that apply): Patient Departure - Discharge Home - Discharge Plan Condition: Stable Disposition: HOME Patient Education Materials: Care For Your Stitches (ED), Laceration (ED), Head Injury (ED), Acute Wound Care (ED) Referrals: Sosa Arteaga MD [Primary Care Provider] - Additional Instructions: RETURN TO THE EMERGENCY DEPARTMENT FOR CHANGING OR WORSENING SYMPTOMS. FOLLOW UP WITH PCP IN 1-2 DAYS. REMOVAL OF STITCHES IN 7 DAYS - Attestation Statements Document Initiated by Scribe: Yes Documenting Scribe: Juan Carlos Georges Provider For Whom Scribe is Documenting (Include Credential): Dr. Colleen Martin Scribe Attestation: Juan Carlos Carballo, scribed for Dr. Colleen Martin on 06/29/18 at 0104.
--- NOTE | 2018-06-29 00:23 | RAD ---
EXAM: CT Head Without Intravenous Contrast CLINICAL HISTORY: 63 years old, female; Injury or trauma; Fall; Initial encounter; Bleeding / hemorrhage and blunt trauma (contusions or hematomas) and concussion / head injury; Without loss of consciousness; Injury date: ; Injury details: Fell hitting forehead on a wooden desk TECHNIQUE: Axial computed tomography images of the head/brain without intravenous contrast. All CT scans at this facility use at least one of these dose optimization techniques: automated exposure control; mA and/or kV adjustment per patient size (includes targeted exams where dose is matched to clinical indication); or iterative reconstruction. COMPARISON: No relevant prior studies available. FINDINGS: Brain: No intracranial hemorrhage or extra-axial fluid collection. No evidence of mass effect or midline shift. Yee-white matter differentiation is normal. Ventricles: Ventricles and sulci are normal. Bones/joints: No acute osseous lesions or fractures. Soft tissues: Small frontal scalp contusion. Sinuses: Unremarkable as visualized. No acute sinusitis. Mastoid air cells: Unremarkable as visualized. No mastoid effusion. IMPRESSION: No acute intracranial pathology. To contact [facility] with a general question: Operations Center - [phone] For direct physician to physician contact: Physician Hotline - [phone] [facility] [place] ([facility] Facility ID #[id number])
[2018-06-29] MEDS ORDERED: oxyCODONE/Acetamin 5/325 MG* TAB PO ONE (00:58)
[2018-06-29 01:59] VITALS: BP 147/75
== END 2018-06-29 01:55 | disposition home or self-care (01) ==
LOC: ED 19:53
DX: S01.91XA Laceration without foreign body of unspecified part of head, initial encounter (principal); S09.90XA Unspecified injury of head, initial encounter; W10.9XXA Fall (on) (from) unspecified stairs and steps, initial encounter; Y92.9 Unspecified place or not applicable; E11.21 Type 2 diabetes mellitus with diabetic nephropathy
CPT/HCPCS: 70450; 90471; 90715; 99283; A9270-GY

== ENCOUNTER 2018-08-02 01:38 | Emergency (ER) | payer OTHER ==
[2018-08-02] MEDS ORDERED: Metoclopramide IV* 5 MG/ML 2 ML VIAL IV SLOW PU ONE (02:03)
[2018-08-02] MEDS ORDERED: Labetalol IV* 5 MG/ML 20 ML VIAL IV PUSH ONE (02:04)
[2018-08-02] MEDS ORDERED: Aspirin 81 mg CHEW TAB* 81 MG TAB.CHEW PO ONE (02:04)
--- OUTSIDE RECORDS SUMMARY | 2018-08-02 02:14 | XMS REPORT ---
:1955 External Reference #:[id number] Author Organization [facility] Address [address] [place] [address] Phone [phone] Care Team Providers Name Role Phone Sosa Arteaga Care Team Information Public Weigher Unavailable Sosa Arteaga Primary Care Physician Unavailable Payers Type Date Identification Numbers Payment Provider Subscriber Commercial Effective: Policy Number: [id number] [employer] Lauren Brito 2017 Group Number: [id number] [address] PayID: [id number] [place] [address] Problems Date Description Provider Status Onset: 04/23/2018 Adjustment disorder with anxious Sosa Arteaga M.D. Active mood Onset: 04/23/2018 Hypothyroidism Sosa Arteaga M.D. Active Onset: 04/23/2018 Type 2 diabetes mellitus Sosa Arteaga M.D. Active Family History Date Family Member(s) Problem(s) Comments First Son 37 First Daughter 33 First Brother due to Natural Causes () - age 57. Social History Type Date Description Comments Marital Status moved to [place] in January 2015 to live closer to daughter Lives With Spouse Lives With Daughter Cigarette Use Never Smoked Cigarettes ETOH Use Denies alcohol use Smoking Patient has never smoked Exercise Type/Frequency Exercises regularly walks 2x/week a couple of blocks. Dom Violence Screen screening has been done feels safe at home, safe in the community. Allergies, Adverse Reactions, Alerts Date Description Reaction Status Severity Comments 09/07/2015 NKDA active 09/07/2015 Adhesives active Medications Medication Date Status Form Strength Qnty SIG Indications Ordering Provider Ergocalciferol 07/08 Active Capsules 90525Ilsm 8caps 1 by mouth Cora /2018 weekly SADIE Guillaume Levothyroxine 10/07 Active Tablets 200mcg 90tab 1 by mouth E03.9 Sosa Pina Sodium s every day Silvano Arteaga Alprazolam 04/17 Active Tablets 0.5mg 120ta 1 -2 by Sosa Pina /2016 bs mouth 4 Chandler, times M.D. daily. as needed Aspirin Ec 12/[address] 81mg 100ta 1 by mouth Sosa Pina /2015 bs every day Silvano Arteaga Hydrocodone-Acet 10/19 Active Tablets 5-325mg 240ta 1-2 po q 4 J06.9 Cora aminophen bs hrs prn Markell pain ASDIE Escitalopram 09/07 Active Tablets 20mg 90tab 1 by mouth Cora Oxalate s daily SADIE Guillaume Metformin HCL 09/07 Active Tablets 500mg 180ta take one Cora bs tablet by russell Guillaume SLIP DUMPER twice a day Amitriptyline Active Tablets 100mg 270ta 3 tablets Cora HCL / bs at bedtime SADIE Guillaume Glipizide XL Active Tablets ER 2.5mg 90tab take one Sosa L. / 24HR s tablet by russell Arteaga M.DLeonardo every day Shingrix 04/23 Hx Suspension 50mcg 2unit inject Z23 Sosa L. Rec s subq. Chandler, - repeat M.D. 07/08 injection /2017 from 2-6 months after first injection Gabapentin 10/03 Hx Capsules 300mg 60cap 1 by mouth M54.12 Cora /2018 s at bedtime Markell, - for one SLIP DUMPER 07/08 week; effective, can add one tab by mouth in the morning Propranolol HCL 10/03 Hx Tablets 10mg 90tab 1 by mouth R51 Cora s every day Markell, Sarah SLIP DUMPER 04/22 Rizatriptan 10/03 Hx Tablets 5mg 14tab take one R51 Cora Benzoate s tablet by Markell, - mouth as SLIP DUMPER 04/22 with onset, may repeat in 4 hours if effective first dose Cyclobenzaprine 08/22 Hx Tablets 5mg 60tab take one M54.12 Sosa L. HCL /2016 s tablet by Chandler, - mouth M.D. 04/22 times daily as needed. take care when driving. Naproxen 08/22 Hx Tablets 500mg 60tab take 1 M54.12 Sosa L. s tablet by Chandler, - mouth two M.D. 10/03 daily after meals or with food in your stomach Physical Therapy 08/22 Hx evaluate M54.12 Sosa L. and treat Chandler, - left M.D. 04/22 radiculopa thy Levothyroxine 07/11 Hx Tablets 175mcg 90tab take one E03.9 Cora Sodium s tablet by Markell, - mouth SLIP DUMPER 10/07 every Zostavax 07/11 Hx Suspension 55413Tqm/ 1unit may Rec 0.65ML s receive Markell, - the SLIP DUMPER 10/03 zostavax Levothyroxine 03/19 Hx Tablets 175mcg 100ta take one E11.9 Sosa L. Sodium bs tablet by Chandler, - mouth M.D. 07/11 every Proair HFA 03/06 Hx Aerosol 108(90Bas 17gm 2 puffs Sosa L. /2016 e) every Chandler - mcg/Act hours as M.D. 07/10 needed Azithromycin 03/06 Hx Tablets 250mg 6tabs 2 by mouth R05 Sosa LLeonardo /2017 today. 1 Chandler, - by mouth M.D. 07/10 daily x Clotrimazole/Bet 03/06 Hx Cream 1-0.05% 45gm apply thin B35.4 Sosa LLeonardo amethasone /2016 layer Chandler Dipvipul - twice M.D. 07/08 dai chest wall area. Trazodone HCL 10/29 Hx Tablets 50mg 60tab 1 -2 by G47.00 Cora /2017 s mouth Markell, - every SLIP DUMPER 03/06 night at bedtime as needed insomnia Doxycycline 10/29 Hx Capsules 100mg 28cap take one J01.90 Cora Hyclate s capsule by Markell, - mouth SLIP DUMPER 03/06 twice a /2016 day Cyclobenzaprine 07/16 Hx Tablets 10mg 20tab 1 by mouth [facility] Afnp-C 07/16 day as needed back pain Metaxalone 07/16 Hx Tablets 400mg 20tab 1 po tid Drea s prn back [facility], - pain Afnp-C 07/23 Naprosyn 06/08 Hx Tablets 500mg 20tab 1 twice a Joaquín Rico s day with Monica, - food M.DLeonardo 07/10 Symbicort 05/16 Hx Aerosol 160-4.5mc 6gm 2 puff g/Act twice a Mala, - day Afnp-C 10/29 Prednisone 05/09 Hx Tablets 20mg 9tabs 2 x 3 days J20.9 Mary ,1 x 3 Mala, - days Afnp-C 05/15 Albuterol 05/09 Hx Nebulizer (2.5mg/3M 75ml inhale the J20.9 L) 0.083% contents Mala, - of one Afnp-C 07/08 vial via nebulizer four times a day as needed Levofloxacin 05/09 Hx Tablets 500mg 7tabs 1 by mouth J20.9 Mary every day Mala, - x 7 Afnp-C 05/16 Hydrocodone-Acet 05/09 Hx Tablets 5-325mg 120ta 1-2 tabs R51 Cora aminophen bs every 6 Markell, - hours as SLIP DUMPER 07/10 needed for pain Levothyroxine 12/26 Hx Tablets 200mcg 90tab 1 by mouth E11.9 Sosa L. Sodium s every day Sarah Arteaga M.D. 03/19 Vitamin D 12/26 Hx Capsules 13894Yqec 12cap take 1 E55.9 Sosa L. (Ergocalciferol) /2015 s capsule by Chandler, - mouth once M.D. 07/10 weekly for 8 weeks. Lisinopril 12/26 Hx Tablets 2.5mg 30tab 1 by mouth E11.9 Sosa Pina /2015 s every day Chandler - M.D. 03/06 Azithromycin 10/19 Hx Tablets 250mg 6tabs take 2 J06.9 tablets by Robert, - mouth SLIP DUMPER 12/26 today then take 1 tablet daily for next 4 days Cheratussin ac 10/19 Hx Syrup 100-10mg/ 120ml 1-2 J06.9 5ML teaspoon Robert, - every 4 SLIP DUMPER 05/ hours needed Dulera 10/19 Hx Aerosol 200-5mcg/ 8.800 2 puff J06.9 Act gm twice a Mala, - day Afnp-C 05/16 Ciloxan 10/19 Hx Solution 0.3% 5ml 2 drop J06.9 affected Robert, - eye(s) SLIP DUMPER 12/26 times a day for 2d then twice a day until clear may fill with generic Amoxicillin/Clav 09/21 Hx Tablets 875-125mg 20tab 1 by mouth J01.80 Sosa Pina ulanate /2015 s twice a Chandler, Potassium - day x 1o M.D. No Active 09/07 Hx Unknown Medications - 09/07 Hydrocodone-Acet 09/07 Hx Tablets 5-325mg 60tab 1 by mouth M25.572 Sosa Pina aminophen /2015 s 4 times Chandler, - daily prn M.D. 10/19 pain nt Levothyroxine Hx Tablets 100mcg 100ta 1 by mouth Sosa Pina Sodium /0000 bs every day Sarah Arteaga M.DLeonardo 08/06 Levothyroxine Hx Tablets 88mcg 100ta 1 by mouth Sosa Pina Sodium /0000 bs every day Sarah Arteaga M.DLeonardo 08/06 Alprazolam Hx Tablets 0.5mg 1-2 Four Unknown /0000 Dispers Times A - Day as 04/17 needed anxiety Proair HFA 00 Hx Aerosol 108(90Bas 2 puffs Unknown /0000 e) every 4 - mcg/Act hours as 10/29 needed Diazepam 0000 Hx Tablets 10mg Unknown /0000 - 03/06 Dulera 00 Hx Aerosol 200-5mcg/ 2 puff R05 Unknown /0000 Act twice a - day 07/08 Ventolin HFA 00 Hx Aerosol 108(90Bas inhale two R05 Unknown /0000 e) puffs by - mcg/Act mouth 03/06 every day to four times a day as directed Medications Administered in Office Medication Date Status Form Strength Qnty SIG Indications Ordering Provider Influenza Virus Injection Cora Vaccine, 2017 Markell, Recombinant SLIP DUMPER Dna, Hemagglutnin Protein On Immunizations CPT Code Status Date Vaccine Lot # [id number] Given 07/11/2017 Pneumococcal Immunization [id number] Given 07/11/2017 Influenza vac quadrivalent preservative free 3yrs [id number] and up Vital Signs Date Vital Result Comment 07/08/2018 BP Systolic 148 mmHg BP Diastolic 78 mmHg Heart Rate 88 /min Body Temperature 97.2 F Respiratory Rate 20 /min 04/23/2018 BP Systolic 162 mmHg BP Diastolic 84 mmHg Heart Rate 104 /min Body Temperature 97.9 F 10/03/2017 BP Systolic 152 mmHg BP Diastolic 82 mmHg Heart Rate 92 /min Body Temperature 98.3 F Respiratory Rate 16 /min 08/22/2017 BP Systolic 152 mmHg BP Diastolic 84 mmHg Heart Rate 88 /min Body Temperature 97.7 F Respiratory Rate 18 /min 08/14/2017 BP Systolic 168 mmHg BP Diastolic [...] Test Date Test Result H/L Range Note Laboratory test finding 07/08/2018 Free T4 1.10 ng/dL 0.75-1.54 TSH 1.58 mIU/L 0.50-6.00 Laboratory test finding 06/22/2018 Cologuard SEE ATTACHED Laboratory test finding 04/23/2018 Vitamin D25 10 Low 30-100 Comprehensive Metabolic Prof 04/23/2018 Sodium 137 mEq/L 134-149 Potassium 2.8 mEq/L Low 3.6-5.5 Chloride 91 mEq/L Low 94-112 Carbon Dioxide 26 mEq/L 21-32 Glucose 113 mg/dL High 70-105 BUN 10 mg/dL 6-26 Creatinine 0.8 mg/dL 0.6-1.4 BUN/Creat Ratio 12.5 CALC 8.0-36.0 Calcium 8.8 mg/dL 8.6-10.2 Total Protein 6.6 g/dL 6.4-8.3 Albumin 4.2 g/dL 3.8-5.5 Globulin 2.4 g/dL 2.0-4.8 A/G Ratio 1.8 CALC 0.6-2.3 Alk. Phosphatase 98 U/L 30-110 Alt (SGPT) 31 U/L 7-35 Ast (Sgot) 18 U/L 5-34 Total Bilirubin 0.4 mg/dL 0.2-1.3 GFR Non- >60 ml/min/1.73m^ >=60 GFR >60 ml/min/1.73m^ >=60 Lipid Profile 04/23/2018 Cholesterol 213 mg/dL High 120-200 Triglycerides 243 mg/dL High 30-200 HDL Cholesterol 43 mg/dL 30-85 LDL (Calculated) 121 CALC 0-129 VLDL Cholesterol 49 mg/dL 0-50 HDL Risk Factor 5.0 CALC High 0.0-4.4 CBC Electronic Fma 04/23/2018 WBC 10.6 x10^3/UL High 4.0-10.0 RBC 4.84 x10^6/UL 3.93-6.00 HGB 14.0 g/dL 12.0-17.0 HCT 43 % 35-50 MCV 88.4 fL 80.0-95.0 MCH 28.9 pg 25.6-32.2 MCHC 32.7 g/dL 32.2-36.0 RDW-CV 12.8 % 11.6-14.4 PLT 257 x10^3/UL 163-400 MPV 9.6 fL 9.4-12.4 Nessa# 6.10 x10^3/UL 1.56-6.13 Lymph# 3.60 x10^3/UL 1.18-3.74 Evangeline# 0.45 x10^3/UL 0.24-0.82 Eos # 0.3 x10^3/UL 0.0-0.5 Baso # 0.08 x10^3/UL 0.01-0.08 Nessa% 57.7 % 34.0-70.0 Lymph % 34.1 % 20.0-52.0 Evangeline% 4.3 % Low 5.0-12.0 Eos% 2.8 % 0.7-7.0 Baso% 0.8 % 0.1-1.2 Laboratory test finding 04/23/2018 Free T4 1.33 ng/dL 0.75-1.54 TSH 0.25 mIU/L Low 0.50-6.00 1 Free T3 2.15 pg/mL 2.00-4.90 Laboratory test finding 04/23/2018 Urine Microalbumin (Fma) 14.9 MG/L Hemoglobin A1c (Fma) 6.5 % % High 4.1-5.7 Laboratory test finding 10/03/2017 TSH 9.35 mIU/L High 0.50-6.00 Free T4 0.57 ng/dL Low 0.75-1.54 CKMB 08/15/2017 CKMB ng/mL 2.1 ng/mL 0.6-6.3 Laboratory test finding 08/15/2017 Troponin I 0.00 ng/mL <0.04 Comp Metabolic Panel 08/15/2017 Sodium 137 mmol/L 133-145 Potassium 4.0 mmol/L 3.5-5.0 Chloride 102 mmol/L 101-111 Co2 Carbon Dioxide 28 mmol/L 22-32 Anion Gap 7 mmol/L 2-11 Glucose 154 mg/dL High 70-100 Blood Urea Nitrogen 13 mg/dL 6-24 Creatinine 0.93 mg/dL 0.51-0.95 BUN/Creatinine Ratio 14.0 8-20 Calcium 8.7 mg/dL 8.6-10.3 Total Protein 6.3 g/dL Low 6.4-8.9 Albumin 3.6 g/dL 3.2-5.2 Globulin 2.7 g/dL 2-4 Albumin/Globulin Ratio 1.3 1-3 Total Bilirubin 0.30 mg/dL 0.2-1.0 Alkaline Phosphatase 87 U/L 34-104 Alt 24 U/L 7-52 Ast 19 U/L 13-39 Egfr Non- 60.9 >60 Egfr 78.3 >60 2 Laboratory test finding 08/15/2017 Lactic Acid 2.2 mmol/L High 0.5-2.0 3 B-Type Natriuretic Peptide BNP 12 pg/mL 4 CBC Auto Diff 08/15/2017 White Blood Count 10.8 10^3/uL 3.5-10.8 Red Blood Count 4.55 10^6/uL 4.0-5.4 Hemoglobin 13.4 g/dL 12.0-16.0 Hematocrit 40 % 35-47 Mean Corpuscular Volume 89 fL 80-97 Mean Corpuscular Hemoglobin 30 pg 27-31 Mean Corpuscular HGB Conc 33 g/dL 31-36 Red Cell Distribution Width 14 % 10.5-15 Platelet Count 236 10^3/uL 150-450 Mean Platelet Volume 8 um3 7.4-10.4 Abs Neutrophils 5.7 10^3/uL 1.5-7.7 Abs Lymphocytes 4.1 10^3/uL 1.0-4.8 Abs Monocytes 0.6 10^3/uL 0-0.8 Abs Eosinophils 0.3 10^3/uL 0-0.6 Abs Basophils 0.1 10^3/uL 0-0.2 Abs Nucleated RBC 0 10^3/uL Granulocyte % 52.4 % 38-83 Lymphocyte % 38.2 % 25-47 Monocyte % 5.5 % 1-9 Eosinophil % 3.2 % 0-6 Basophil % 0.7 % 0-2 Nucleated Red Blood Cells % 0 CBC Auto Diff 08/14/2017 White Blood Count [...] finding 08/14/2017 Troponin I 0.00 ng/mL <0.04 5 Comp Metabolic Panel 08/14/2017 Sodium 137 mmol/L [...] Egfr Non- 65.8 >60 Egfr 84.6 >60 6 Laboratory test finding 07/11/2017 Hemoglobin A1c (Fma) [...] 7.1 x10^3/UL 1.5-7.2 Lymph# 4.0 x10^3/UL 0.7-4.9 Evangeline# 0.4 x10^3/UL 0.1-0.9 Gran % 60.3 % 42.2-75.2 Lymph % 35.5 % 20.5-51.1 Evangeline% 4.2 % 1.7-9.3 Comprehensive Metabolic Prof 07/11/2017 Sodium 143 mEq/L 134-149 Potassium 4.0 mEq/L 3.6-5.5 Chloride 100 mEq/L 94-112 Carbon Dioxide 29 mEq/L 21-32 Glucose 109 mg/dL High 70-105 7 BUN 11 mg/dL 6-26 Creatinine 0.9 mg/dL 0.6-1.4 BUN/Creat Ratio 12.2 CALC 8.0-36.0 Calcium 9.1 mg/dL 8.6-10.2 Total Protein 7.1 g/dL 6.4-8.3 Albumin 4.3 g/dL 3.8-5.5 Globulin 2.8 g/dL 2.0-4.8 A/G Ratio 1.5 CALC 0.6-2.3 Alk. Phosphatase 107 U/L 30-110 Alt (SGPT) 38 U/L High 7-35 8 Ast (Sgot) 33 U/L 5-34 Total Bilirubin 0.2 mg/dL 0.2-1.3 GFR Non- >60 ml/min/1.73m^ >=60 GFR >60 ml/min/1.73m^ >=60 Comprehensive Metabolic Prof 03/06/2017 Sodium 138 mEq/L 134-149 Potassium 4.9 mEq/L 3.6-5.5 Chloride 98 mEq/L 94-112 Carbon Dioxide 27 mEq/L 21-32 Glucose 117 mg/dL High 70-105 9 BUN 9 mg/dL 6-26 Creatinine 0.8 mg/dL [...] >60 ml/min/1.73m^ >=60 GFR >60 ml/min/1.73m^ >=60 Complete Blood Count 03/06/2017 WBC 9.3 x10^3/UL 3.6-9.6 RBC 4.99 x10^6/UL 3.90-5.70 HGB 14.7 g/dL 12.1-17.2 HCT 44 % 36-50 MCV 88.0 fL 82.2-97.4 MCH 29.4 pg 27.6-33.3 MCHC 33.3 g/dL 33.0-35.5 RDW 13.8 % High 11.6-13.7 PLT 295 x10^3/UL 150-400 MPV 7.1 fL Low 7.4-10.4 Gran # 5.9 x10^3/UL 1.5-7.2 Lymph# 2.8 x10^3/UL 0.7-4.9 Evangeline# 0.6 x10^3/UL 0.1-0.9 Gran % 63.0 % 42.2-75.2 Lymph % 30.2 % 20.5-51.1 Evangeline% 6.8 % 1.7-9.3 Laboratory test finding 03/06/2017 TSH 0.08 mIU/L Low 0.50-6.00 10 Lipid Profile 03/06/2017 Cholesterol 214 mg/dL High 120-200 Triglycerides 181 mg/dL 30-200 HDL Cholesterol 41 mg/dL 30-85 LDL (Calculated) 137 CALC High 0-129 VLDL Cholesterol 36 mg/dL 0-50 HDL Risk Factor 5.2 CALC High 0.0-4.4 Laboratory test finding 03/06/2017 Microalb, Random 10.4 mg/L 0.5-37 (Fma/CMC/CTX) Hemoglobin A1c (Fma) 6.5 % % High 4.1-5.7 Laboratory test finding 08/06/2016 Sedimentation Rate 16MM Laboratory test finding 08/06/2016 Antinuclear Antibodies, Ifa Negative 11, 12 Lyme, Western Blot, Serum 04/18/2016 IgG P93 Ab. Absent 13 IgG P66 Ab. Absent 13 IgG P58 Ab. Absent 13 IgG P45 Ab. Present 13 IgG P41 Ab. Absent 13 IgG P39 Ab. Absent 13 IgG P30 Ab. Absent 13 IgG P28 Ab. Absent 13 IgG P23 Ab. Absent 13 IgG P18 Ab. Absent 13 Lyme IgG WB Interp. Negative 13, 14 IgM P41 Ab. Absent 13 IgM P39 Ab. Absent 13 IgM P23 Ab. Absent 13 Lyme IgM WB Interp. Negative 13, 15 Laboratory test finding 02/29/2016 TSH 3.96 mIU/L 0.50-6.00 16 Free T4 1.01 ng/dL 0.75-1.54 Lipid Profile [...] mEq/L 21-32 Glucose 122 mg/dL High 70-105 17 BUN 13 mg/dL 6-26 Creatinine 1.0 mg/dL 0.6-1.4 BUN/Creat Ratio 13.0 CALC 8.0-36.0 Calcium 8.9 mg/dL 8.6-10.2 Total Protein 6.8 g/dL 6.4-8.3 Albumin 4.1 g/dL 3.8-5.5 Globulin 2.7 g/dL 2.0-4.8 A/G Ratio 1.5 CALC 0.6-2.3 Alk. Phosphatase 114 U/L High 30-110 18 Alt (SGPT) 55 U/L High 7-35 19 Ast (Sgot) 44 U/L High 5-34 20 Total Bilirubin 0.2 mg/dL 0.2-1.3 GFR Non- [...] 5.8 x10^3/UL 1.5-7.2 Lymph# 3.3 x10^3/UL 0.7-4.9 Evangeline# 0.5 x10^3/UL 0.1-0.9 Gran % 59.3 % 42.2-75.2 Lymph % 34.8 % 20.5-51.1 Evangeline% 5.9 % 1.7-9.3 Ebv Acute Infection 10/19/2015 Ebv Ab Vca, IgM >160.0 U/mL High 0.0-35.9 13, 21 Antibodies Profile Ebv Early Antigen Ab, IgG 69.9 U/mL High 0.0-8.9 13, 22 Ebv Ab Vca, IgG 186.0 U/mL High 0.0-17.9 13, 23 Ebv Nuclear Antigen Ab, IgG 161.0 U/mL High 0.0-17.9 13, 24 Interpretation: See Comment: 13, 25 Laboratory test finding 09/26/2015 Hemoglobin A1c (Fma) 6.8 % High 4.1- 5.7 Laboratory test finding 09/26/2015 TSH 19.38 mIU/L High 0.50-6.00 26 Free T4 0.86 ng/dL 0.75-1.54 Vitamin D25 18 Low 30-100 27 Complete Blood Count 09/26/2015 WBC 10.7 x10^3/UL High 3.6-9.6 28 RBC 4.38 x10^6/UL 3.90-5.70 HGB 13.0 g/dL 12.1-17.2 HCT 40 % 36-50 MCV 91.0 fL 82.2-97.4 MCH 29.8 pg 27.6-33.3 MCHC 33.0 g/dL 33.0-35.5 RDW 14.0 % High 11.6-13.7 PLT 275 x10^3/UL 150-400 MPV 6.2 fL Low 7.4-10.4 Gran # 7.2 x10^3/UL 1.5-7.2 Lymph# 3.1 x10^3/UL 0.7-4.9 Evangeline# 0.4 x10^3/UL 0.1-0.9 Gran % 66.3 % 42.2-75.2 Lymph % 29.2 % 20.5-51.1 Evangeline% 4.5 % 1.7-9.3 Lipid Profile 09/26/2015 Cholesterol [...] ml/min/1.73m^ >=60 GFR >60 ml/min/1.73m^ >=60 1 RESULTS VERIFIED BY REPEAT ANALYSIS 2 Because ethnic data is not always [...] 5 Kidney failure <15 (or dialysis) 3 Critical Result LACT:2.2 Called to [id number] at: 19:47:50 by:[id number] Read back by:[id number] [facility] Severe Sepsis and Septic Shock Management Bundle Measure requires all lactic acids initially measuring >2.0 mmol/L be repeated. 4 >100 to <200 pg/mL: likely compensated congestive heart failure (CHF) 200 to 400 pg/mL: likely moderate CHF >400 pg/mL: likely moderate to severe CHF [address] ARTEAGA [phone] PATIENT CELL NUMBER [phone] ARTEAGA by [id number] at [phone] on 08/14/17. Results read back accurately. 6 Because ethnic data is not always readily [...] 15-29 5 Kidney failure <15 (or dialysis) 7 RESULTS VERIFIED BY REPEAT ANALYSIS 8 RESULTS VERIFIED BY REPEAT ANALYSIS 9 consistent w/ previous results 10 RESULTS VERIFIED BY REPEAT ANALYSIS 11 1 sst 12 Negative <1:80 Borderline 1:80 Positive >1:80 13 1 SST 14 Positive: 5 of the following Borrelia-specific bands: 18,23,28,30,39,41,45,58, 66, and 93. Negative: No bands or banding patterns which do not meet positive criteria. 15 Note: An equivocal or positive EIA result [...] are those recommended by CDC/ASTPHLD. p23=Osp C, j29=tmjyxmqzc Note: Sera from individuals with the following may cross react in the Lyme Western Blot assays: other spirochetal diseases (periodontal disease, leptospirosis, relapsing fever, yaws, and pinta); connective autoimmune (Rheumatoid Arthritis and Systemic Lupus Erythematosus and also individuals with Antinuclear Antibody); other infections ([place] Spotted Fever; Gladys-Cedillo Virus, and Cytomegalovirus). 16 FASTING early February. 17 NON-FASTING 18 consistent w/ previous results 19 consistent w/ previous results 20 consistent w/ previous results 21 Negative <36.0 Equivocal 36.0 - 43.9 Positive >43.9 22 Hepatitis A, Hepatitis C and HIV antibodies may cross-react with this assay. Negative < 9.0 Equivocal 9.0 - 10.9 Positive >10.9 23 Negative <18.0 Equivocal 18.0 - 21.9 Positive >21.9 24 Negative <18.0 Equivocal 18.0 - 21.9 Positive >21.9 25 EBV Interpretation Chart Interpretation EBV-IgM EA(D)-IgG VCA-IgG EBNA-IgG EBV Seronegative - - - - Early Phase + - - - Acute Primary + +or- + - Infection Convalescence/Past - +or- + + Infection Reactivated +or- + + + Infection + Antibody Present - Antibody Absent 26 RESULTS VERIFIED BY REPEAT ANALYSIS 27 RESULTS VERIFIED BY REPEAT ANALYSIS 28 RESULTS VERIFIED BY REPEAT ANALYSIS Procedures Date CPT Code Description Status Comment 08/14/2017 74452 Pulse Oximetry Completed 08/14/2017 64453 Electrocardiogram Complete Completed 08/25/2016 Colonoscopy Completed never had one. declined 08/25/2016 Mammogram Completed unknown. They hurt too much due to large breasts. 06/08/2016 95693 Pulse Oximetry Completed 06/08/2016 29236 Electrocardiogram Complete Completed 05/09/2016 25553 Pulse Oximetry Completed 05/09/2016 44233 Nebulizer Treatment Completed Encounters Type Date Location Provider CPT E/M Dx Office Visit 04/23/2018 9:00a [facility] Office Sosa Arteaga, 14487 Z00.00 M.DLeonardo E11.9 E03.9 F43.22 Z12.11 Z23 E55.9 H93.13 R03.0 Office Visit 10/03/2017 3:00p [facility] Office Cora Guillaume [facility] 88666 M54.12 R51 M79.641 M79.642 H93.13 E03.9 R53.83 Office Visit 08/22/2017 1:40p [facility] Office Sosa Arteaga M.D. 98202 M54.12 Office Visit 08/14/2017 3:00p [facility] Office Sosa Arteaga M.D. 45889 R07.89 F43.22 M54.12 Office Visit 07/11/2017 11:00a [facility] Office Cora Guillaume [employer] 59525 E03.9 R10.84 R11.0 Z23 E11.9 R82.99 Office Visit 03/06/2017 1:40p [facility] Office Sosa Arteaga M.D. 54504 E11.9 M79.601 R05 R19.7 B35.4 Office Visit 10/29/2016 9:30a [facility] Office Cora Guillaume [employer] 14031 J01.90 R05 G47.00 F34.1 Office Visit 08/27/2016 10:00a [facility] Office Cora Guillaume [facility] 69074 F43.0 R07.89 R07.82 R21 Office Visit 08/06/2016 11:30a [facility] Office Cora Kiddbhart, [facility] 77759 R21 R07.82 R07.89 F43.0 Office Visit 07/16/2016 11:30a [facility] Office Drea Hendrix, [facility] 13446 M54.6 R21 Office Visit 06/08/2016 12:20p Main Office Joaquín Anderson M.D. 36464 R05 M89.8x8 Office Visit 05/09/2016 10:15a [facility] Office Mary Medeiros, [facility] 24508 R05 J20.9 R51 J45.21 Office Visit 04/18/2016 10:20a [facility] Office Sosa Arteaga M.D. 61594 H92.03 A69.20 Office Visit 03/06/2016 3:00p [facility] Office Sosa Arteaga M.D. 59460 E03.9 E11.9 R03.0 Office Visit 12/27/2015 10:40a [facility] Office Sosa Arteaga M.D. 18991 E03.9 E11.9 E55.9 F44.81 E78.2 Office Visit 10/19/2015 9:30a [facility] Office Danelle Jones, [facility] 60460 J06.9 Office Visit 09/21/2015 3:20p [facility] Office Sosa Arteaga M.D. 40605 J01.80 M79.672 R29.6 Office Visit 09/07/2015 1:00p [facility] Office Sosa Arteaga M.D. 24870 M25.572 F44.81 E11.9 E03.9 E55.9 Plan of Care Future Appointment(s):09/02/2018 10:00 am - SADIE Nails at [facility] Ftznwl0507/08/2018 - SADIE NailsZ48.02 Encounter for removal of suturesComments:Keep the area clean and dry, no need to keep it dressed--unless you prefer to have coveredInfection looks like: hot, red, pussy, tender; call KIARA if condition changes/worsens in any wayW10.8xxA Fall (on) (from) other stairs and steps, initial [id number] Pain in joints of right handComments: Soak the right hand in epsom twice dailyPT hand stretches and perform twice daily after the soak; you may need to force the finger into a new position initially, gentle but keep it dkarkdG19.12 Radiculopathy, cervical regionComments:This will be a matter of MAINTENANCE and routine conservative measuresDaily stretching, gentle rangeof motion exercisesMassage would really help--Jeison if possible and/or insurance will help here--but the hubs can help tooROUTINE heat application--twice or three times daily as a routineTOpical analgesics--bengay/biofreeze/arnica--with massagecervical pain cervical radiculopathycervical degenerative joint diseaseFollow up:PLEASE FOLLOW UP IN 6- 8 WEEKS OF CONSERVATIVE [id number] HeadacheComments:both this and ear ringing likely related to your neck/arms/shouldersdo the TLC to this part of your body, and lets follow-up in 6-8 weeks and make sure you're making ghwetruwB17.13 Tinnitus, khxvwmjyhP45.9 Hypothyroidism, vpngdtafolhQ06.9 Type 2 diabetes mellitus without complicationsComments:high protein diet--aim for 40-50 grams per day if you caneat on a routine schedule --you may be retaining weight based on too low a calorie content--your body will hold on to calories if you don't eat enough for it to know it will be fed again in the mtpgttY71.12 Post- traumatic stress disorder, evdqiveU80 Encounter for immunizationAllNew Medication:Ergocalciferol [id number] UnitComments:~B_~U_Medication Management~b_~u_ Patient Understands medications he 's taking? Yes No Are there Barriers to Adherence? Yes No Has the patient been asked about herbal supplements and therapies, and OTC meds? Yes No As always, we strongly encourage a healthy diet and makingphysical activity a part of your every day life. If you have questions about how or where to start, please contact the office.
[2018-08-02 02:20] LABS: ABS Basophils 0.1 10^3/ul (0-0.2); ABS Eosinophils 0.4 10^3/ul (0-0.6); ABS Lymphocytes 3.7 10^3/ul (1.0-4.8); ABS Monocytes 0.6 10^3/ul (0-0.8); ABS Neutrophils 5.3 10^3/ul (1.5-7.7); ABS Nucleated RBC 0 10^3/ul; Eosinophil % 4.3 %; Hematocrit 38 % (35-47); Hemoglobin 12.7 g/dl (12.0-16.0); Lymphocyte % 36.3 %; Mean Corpuscular HGB Conc 33 g/dl (31-36); Mean Corpuscular Hemoglobin 29 pg (27-31); Mean Corpuscular Volume 88 fL (80-97); Mean Platelet Volume 7.9 fL (7.4-10.4); Nucleated Red Blood Cells % 0; Platelet Count 222 10^3/ul (150-450); Red Blood Count 4.36 10^6/ul (4.00-5.40); Red Cell Distribution Width 13 % (10.5-15); White Blood Count 10.1 10^3/ul (3.5-10.8)
--- NOTE | 2018-08-02 02:24 | ED ---
HPI Chest Pain - HPI Summary HPI Summary: This patient is a 63 year old F presenting to ED with a chief complaint of L- sided CP since yesterday. The CC is described as radiating to the back and down the L arm. The patient rates the pain 8/10 in severity. Symptoms aggravated by nothing. Symptoms alleviated by nothing. Patient reports nausea. Patient denies diaphoresis. - History of Current Complaint Chief Complaint: EDChestPainROMI Time Seen by Provider: 08/02/18 01:49 Hx Obtained From: Patient Onset/Duration: Started Days Ago - since yesterday Initial Severity: Severe Current Severity: Severe Pain Intensity: 8 Pain Scale Used: 0-10 Numeric Chest Pain Location: Discrete at: - L-sided CP Chest Pain Radiates: Yes Chest Pain Radiates To:: Back, Arm - left Aggravating Factor(s): Nothing Alleviating Factor(s): Nothing Associated Signs and Symptoms: Positive: Nausea. Negative: Diaphoresis - Allergy/Home Medications Allergies/Adverse Reactions: Allergies Allergy/AdvReac Type Severity Reaction Status Date / Time Adhesive Tape Allergy See Comment Verified 08/02/18 01:40 cephalexin [From Keflex] Allergy Rash Verified 08/02/18 01:40 PMH/Surg Hx/FS Hx/Imm Hx Endocrine/Hematology History: Reports: Hx Diabetes - Type two, Hx Thyroid Disease - partial thyroidectomy Cardiovascular History: Denies: Hx Hypertension Respiratory History: Reports: Hx Asthma - WHEN PT HAS A COLD Denies: Hx Chronic Obstructive Pulmonary Disease (COPD) GI History: Denies: Hx Ulcer - Surgical History Surgery Procedure, Year, and Place: Partial thyroidectomy, C sections x2, Appendectomy, Right ovary and tube removal, Gallbladder Infectious Disease History: No Infectious Disease History: Reports: Hx Shingles - x3 left thigh, recent Denies: Hx Clostridium Difficile, Hx Hepatitis, Hx Human Immunodeficiency Virus (HIV), Hx of Known/Suspected MRSA, Hx Tuberculosis, Hx Known/Suspected VRE , Hx Known/Suspected VRSA, History Other Infectious Disease, Traveled Outside the [place] in Last 30 Days - Family History Known Family History: Positive: Hypertension, Diabetes - Social History Alcohol Use: Rare Substance Use Type: Reports: None Smoking Status (MU): Never Smoked Tobacco Review of Systems Negative: Skin Diaphoresis Positive: Chest Pain - L-sided, radiating to L arm and back Positive: Nausea All Other Systems Reviewed And Are Negative: Yes Physical Exam - Summary Physical Exam Summary: VITAL SIGNS: Reviewed. GENERAL: Patient is a morbidly obese FEMALE who is lying comfortable in the stretcher. Patient is not in any acute respiratory distress. HEAD AND FACE: No signs of trauma. No ecchymosis, hematomas or skull depressions. No sinus tenderness. EYES: PERRLA, EOMI x 2, No injected conjunctiva, no nystagmus. EARS: Hearing grossly intact. Ear canals and tympanic membranes are within normal limits. MOUTH: Oropharynx within normal limits. NECK: Supple, trachea is midline, no adenopathy, no JVD, no carotid bruit, no c- spine tenderness, neck with full ROM. CHEST: Symmetric, no tenderness at palpation LUNGS: Clear to auscultation bilaterally. No wheezing or crackles. CVS: Regular rate and rhythm, S1 and S2 present, no murmurs or gallops appreciated. ABDOMEN: Soft, non-tender. No signs of distention. No rebound no guarding, and no masses palpated. Bowel sounds are normal. EXTREMITIES: FROM in all major joints, no edema, no cyanosis or clubbing. NEURO: Alert and oriented x 3. No acute neurological deficits. Speech is normal and follows commands. SKIN: Dry and warm Triage Information Reviewed: Yes Vital Signs On Initial Exam: Initial Vitals Temp Pulse Resp BP Pulse Ox 97.7 F 93 16 182/97 98 08/02/18 01:47 08/02/18 01:47 08/02/18 01:47 08/02/18 01:47 08/02/18 01:47 Vital Signs Reviewed: Yes Diagnostics - Vital Signs Vital Signs Temp Pulse Resp BP Pulse Ox 08/02/18 01:47 97.7 F 93 16 182/97 98 - Laboratory Result Diagrams: 08/02/18 02:14 08/02/18 02:14 Lab Statement: Any lab studies that have been ordered have been reviewed, and results considered in the medical decision making process. - Radiology CXR Radiology Interpretation Completed By: ED Physician Summary of Radiographic Findings: Negative CXR. Pending radiologist official report. - CT CTA Chest/Abd/Pel CT Interpretation Completed By: Radiologist Summary of CT Findings: CTA Chest reveals. 1. No acute pulmonary embolic disease. 2. No evidence of an aortic dissection or aneurysm. 3. No acute cardiopulmonary abnormality. CTA Abd/Pel reveals. 1. No acute findings. 2. Left adrenal nodule measuring approximately 2.9 cm in greatest dimension. It. has a central density of approximately 16 Hounsfield units. Findings are. consistent with an adenoma. ED physician has reviewed this radiology report. - EKG 0140 Cardiac Rate: NL - 88 BPM EKG Rhythm: Sinus Rhythm Summary of EKG Findings: Normal axis. Normal interval. No ischemic changes. Re-Evaluation - Re-Evaluation First Eval Re-Evaluation Time: 05:11 Change: Improved Comment: Patient is feeling better. Discussed results with the patient. Chest Pain Course/Dx - Course Assessment/Plan: This patient is a 63 year old F presenting to ED with a chief complaint of L-sided CP since yesterday. In the ED course, the patient was given ASA, labetalol, Reglan, and Mophine. CXR is negative. CTA Chest reveals 1. No acute pulmonary embolic disease. 2. No evidence of an aortic dissection or aneurysm. 3. No acute cardiopulmonary abnormality. CTA Abd/Pel reveals 1. No acute findings. 2. Left adrenal nodule measuring approximately 2.9 cm in greatest dimension. It has a central density of approximately 16 Hounsfield units. Findings are consistent with an adenoma. This patient will be discharged with instructions to see Dr. Lopez as an outpatient for a stress test. - Diagnoses Provider Diagnoses: Chest pain Discharge - Sign-Out/Discharge Documenting (check all that apply): Patient Departure - discharge - Discharge Plan Condition: Stable Disposition: HOME Prescriptions: Ibuprofen TAB* [Motrin TAB* 800 MG] 800 mg PO Q6H PRN #30 tab PRN Reason: Pain oxyCODONE/Acetamin 5/325 MG* [Percocet 5/325 TAB*] 1 tab PO Q6H PRN #14 tab MDD 4 PRN Reason: Pain Patient Education Materials: Chest Pain (ED) Referrals: Jolie Lopez MD [Medical Doctor] - 08/03/18 (Follow up as an outpatient for a stress test.) Additional Instructions: RETURN TO THE EMERGENCY DEPARTMENT FOR CHANGING OR WORSENING SYMPTOMS. FOLLOW UP WITH PCP IN 1-[address] LOPEZ ON FRIDAY MORNING AN OUTPATIENT FOR A STRESS TEST. - Attestation Statements Document Initiated by Scribe: Yes Documenting Scribe: Fer Correa Provider For Whom Scribe is Documenting (Include Credential): Colleen Martin MD Scribe Attestation: I, Fer Correa, scribed for Colleen Martin MD on 08/02/18 at 0550. Status of Scribe Document: Ready
[2018-08-02 02:28] LABS: INR 0.86 (0.77-1.02)
[2018-08-02] MEDS: Morphine VIAL* 4 MG/ML VIAL (1 ml vial) IV ONE ×2 (02:36→03:31)
[2018-08-02 02:39] LABS: EGFR Non-African American 66.4 (>60)
[2018-08-02] MEDS ORDERED: Iodixanol* (CONTRAST) 320 MG/ML 100 ML SDV IV ONE (02:58)
[2018-08-02] MEDS ORDERED: Ketorolac INJ* 30 MG/ML 1 ML VIAL IV PUSH ONE (05:13)
[2018-08-02 06:04] VITALS: BP 169/74
== END 2018-08-02 06:03 | disposition home or self-care (01) ==
LOC: ED 01:38
DX: R07.9 Chest pain, unspecified (principal); E27.9 Disorder of adrenal gland, unspecified; E11.9 Type 2 diabetes mellitus without complications; E07.9 Disorder of thyroid, unspecified
CPT/HCPCS: 36415; 71045; 71275; 74174; 80053; 82550; 82553; 83605; 83735; 83880; 84443; 84484; 85025; 85610; 85730; 93005; 96374; 99283; A9270-GY; J1885; J2270; J2765; Q9967

== ENCOUNTER 2022-03-17 19:08 | Observation (INO) ==
[2022-03-17 20:10] LABS: Albumin 3.8 g/dL (3.2-5.2); Albumin/Globulin Ratio 1.3 (1-3); Calcium 9.1 mg/dL (8.6-10.3); Globulin 2.9 g/dL (2-4); Potassium 4.9 mmol/L (3.5-5.0); Total Bilirubin 0.3 mg/dL (0.2-1.0); Total Protein 6.7 g/dL (6.4-8.9); eGFR CKD-EPI 51.1 (>60)
[2022-03-17 20:25] LABS: ABS Basophils 0.1 10^3/ul (0-0.2); ABS Eosinophils 0.4 10^3/ul (0-0.6); ABS Lymphocytes 3.9 10^3/ul (1.0-4.8); ABS Monocytes 0.6 10^3/ul (0-0.8); ABS Neutrophils 6.1 10^3/ul (1.5-7.7); Eosinophil % 3.2 %; Hematocrit 42 % (35-47); Hemoglobin 13.3 g/dL (12.0-16.0); Lymphocyte % 35.3 %; Mean Corpuscular HGB Conc 32 g/dL (31-36); Mean Corpuscular Hemoglobin 28 pg (27-31); Mean Corpuscular Volume 89 fL (80-97); Mean Platelet Volume 8.3 fL (7.4-10.4); Platelet Count 266 10^3/uL (150-450); Red Blood Count 4.71 10^6 /uL (3.70-4.87); Red Cell Distribution Width 14 % (10-15)
[2022-03-17 20:48] LABS: INR 0.94 (0.89-1.11)
[2022-03-17 21:52] LABS: High Sensitivity Troponin 1 Hr 8 pg/mL (<15)
[2022-03-17] MEDS ORDERED: Enoxaparin 40 MG/0.4 ML SYR SUBCUT SCH (23:45)
[2022-03-17] MEDS ORDERED: NS 0.9% 1000 ml BAG 1,000 ML IV SCH (23:45)
[2022-03-18] MEDS ORDERED: Dextrose 50% Syringe 50 ml 25 GM/50 ML SYRINGE IV PUSH PRN (00:08)
[2022-03-18] MEDS ORDERED: Albuterol 2.5mg/3 ml (0.083%) NEB.SOLN INH ONE (00:09)
[2022-03-18] MEDS ORDERED: Albuterol HFA INHALER 8 gm MDI INH PRN (00:12)
[2022-03-18 02:17] LABS: TSH Ultra Thyroid Stim Horm 9.79 mcIU/mL (0.34-5.60)
[2022-03-18] MEDS: HYDROcodone/ACETAMIN 5/325 mg TAB PO PRN ×2 (05:26→15:50)
[2022-03-18 05:32] LABS: ABS Basophils 0.1 10^3/ul (0-0.2); ABS Eosinophils 0.3 10^3/ul (0-0.6); ABS Lymphocytes 3.5 10^3/ul (1.0-4.8); ABS Monocytes 0.5 10^3/ul (0-0.8); ABS Neutrophils 4.3 10^3/ul (1.5-7.7); Eosinophil % 3.1 %; Hematocrit 38 % (35-47); Hemoglobin 12.1 g/dL (12.0-16.0); Lymphocyte % 40.9 %; Mean Corpuscular HGB Conc 32 g/dL (31-36); Mean Corpuscular Hemoglobin 29 pg (27-31); Mean Corpuscular Volume 89 fL (80-97); Mean Platelet Volume 7.9 fL (7.4-10.4); Platelet Count 223 10^3/uL (150-450); Red Blood Count 4.23 10^6 /uL (3.70-4.87); Red Cell Distribution Width 14 % (10-15); White Blood Count 8.7 10^3/uL (3.5-10.8)
[2022-03-18 06:10] LABS: Calcium 7.8 mg/dL (8.6-10.3); Potassium 4.3 mmol/L (3.5-5.0); eGFR CKD-EPI 58.9 (>60)
[2022-03-18] MEDS ORDERED: SYNTHROID PO SCH (09:00)
[2022-03-18 15:33] VITALS: BP 158/74
[2022-03-18] MEDS ORDERED: Regadenoson 0.4 MG/5 ML SYRINGE ONE (15:42)
== END 2022-03-18 19:00 | disposition home or self-care (01) ==
LOC: ED 19:08 → EDHOLD 19:08 → SUATTDRO 03-18 00:06 → MEDTELE 03-18 10:01
PROVIDERS: ADMIT Internal Medicine; ATTEND Hospitalist

== ENCOUNTER 2024-03-29 04:26 | Inpatient (IN) ==
[2024-03-29 05:10] LABS: ABS Basophils 0.1 10^3/uL (0.0-0.1); ABS Eosinophils 0.2 10^3/uL (0.0-0.5); ABS Lymphocytes 3.2 10^3/uL (1.0-4.8); ABS Monocytes 0.5 10^3/uL (0.0-0.9); ABS Neutrophils 5.9 10^3/uL (1.5-7.6); Hematocrit 41.4 % (35-45); Hemoglobin 13.9 g/dL (11.5-14.3); Lymphocyte % 32.1 %; Mean Corpuscular Hemoglobin 30.7 pg (27-33); Mean Corpuscular Hgb Conc 33.5 g/dL (31-36); Mean Corpuscular Volume 91.6 fL (80-97); Mean Platelet Volume 7.8 fL (7.5-11.2); Platelet Count 221 10^3/uL (150-450); Red Blood Count 4.52 10^6/uL (3.63-4.92); White Blood Count 9.8 10^3/uL (3.8-11.8)
[2024-03-29 05:25] LABS: INR 1.05 (0.83-1.13)
[2024-03-29 06:18] LABS: Albumin 3.9 g/dL (3.2-5.2); Albumin/Globulin Ratio 1.7 (1-3); Creatinine, Serum 0.88 mg/dL (0.51-0.95); Globulin 2.3 g/dL (2-4); Potassium 3.9 mmol/L (3.5-5.0); Total Bilirubin 0.5 mg/dL (0.2-1.0); Total Protein 6.2 g/dL (6.4-8.9); eGFR CKD-EPI 71.1 (>60)
[2024-03-29 06:40] LABS: High Sensitivity Troponin 1 Hr 4 pg/mL (<15)
[2024-03-29] MEDS: Iodixanol (CONTRAST) 320 MG/ML 100 ML SDV IV ONE (07:10)
[2024-03-29] MEDS ORDERED: Senna TAB 8.6 mg TAB PO PRN (08:18)
[2024-03-29] MEDS ORDERED: Polyethylene Glycol 3350 17 GM PACKET PO PRN (08:18)
[2024-03-29] MEDS: hydrALAZINE 20 mg/ml 1 ML Vial IV IV SLOW PU ONE (08:21)
[2024-03-29] MEDS ORDERED: Albuterol HFA INHALER 8 gm MDI INH PRN (09:06)
[2024-03-29] MEDS: Enoxaparin 40 MG/0.4 ML SYR SUBCUT SCH (10:17)
[2024-03-29] MEDS: Ondansetron 4 mg VIAL 2 MG/ML 2 ml VIAL IV PRN (10:17)
[2024-03-29] MEDS: Sulfur Hexaflouride MICROSPHR 25 MG VIAL IV ONE (14:09)
[2024-03-29] MEDS: HYDROcodone/ACETAMIN 5/325 mg TAB PO PRN (15:29)
[2024-03-29] MEDS: PTO:Verapamil PM 100 mg CAP (NF) PO SCH (15:36)
[2024-03-30] MEDS: Lidocaine PATCH 5% PATCH TRANSDERM SCH (08:19)
[2024-03-30] MEDS ORDERED: Ondansetron 4 mg VIAL 2 MG/ML 2 ml VIAL ONE (09:16)
[2024-03-30] MEDS: hydrALAZINE 20 mg/ml 1 ML Vial IV IV SLOW PU ONE (16:32)
[2024-03-30] MEDS: GALCANEZUMAB GNLM 120 MG/ML SUBCUT SCH (16:37)
[2024-03-31] MEDS ORDERED: Regadenoson 0.4 MG/5 ML SYRINGE ONE (07:30)
[2024-03-31 16:26] LABS: HDL Cholesterol 30.1 mg/dL
[2024-04-01 07:42] LABS: Calcium 8.8 mg/dL (8.6-10.3); Creatinine, Serum 1.04 mg/dL (0.51-0.95); Magnesium 1.8 mg/dL (1.9-2.7); Potassium 4.1 mmol/L (3.5-5.0); eGFR CKD-EPI 58.2 (>60)
[2024-04-01] MEDS ORDERED: fentaNYL 100 mcg/2 ml 50 MCG/ML VIAL ONE ×3 (11:24→13:08)
[2024-04-01] MEDS ORDERED: Heparin 1,000 UNIT/ML 10 ml (10,000 UNITS) CATHLAB/DIALYSIS ONE (11:32)
[2024-04-01] MEDS ORDERED: Lidocaine 1% MPF 5 ML VIAL ONE (11:32)
[2024-04-01] MEDS ORDERED: Midazolam 5 mg/5 ml VIAL 1 mg/ml 5 ml VIAL (5 mg) ONE (11:32)
[2024-04-01] MEDS ORDERED: Heparin 2 UNITS/ML 1000 mls 2,000 ML IV ONE (11:32)
[2024-04-01] MEDS ORDERED: nitroGLYCERIN DRIP 25,000 MCG/250 ML BTL ONE (11:32)
[2024-04-01] MEDS ORDERED: niCARdipine 0.1MG/ML IVPREMIX 20 MG/200 ML BAG IV ONE (11:33)
[2024-04-01] MEDS ORDERED: Flumazenil 0.5 mg/5 ml 0.1 MG/ML 5 ml VIAL IV PRN (11:39)
[2024-04-01] MEDS ORDERED: Naloxone 0.4 mg VIAL 0.4 mg/ml 1 ml VIAL IV PUSH PRN (11:39)
[2024-04-01] MEDS ORDERED: Iohexol 350 (CONTRAST) 200 ML MDV IV ONE (12:11)
[2024-04-01 12:33] LABS: POC SO2 61 %
[2024-04-01] MEDS ORDERED: Iohexol 350 (CONTRAST) 100 ML PAK IV ONE (12:39)
[2024-04-01 14:26] LABS: POC SO2 85 %
[2024-04-01 14:26] LABS: POC SO2 85 %
[2024-04-01] MEDS: fentaNYL 100 mcg/2 ml 50 MCG/ML VIAL IV SLOW PU ONE (15:15)
[2024-04-01] MEDS: Midazolam 10 mg/10 ml VIAL 1 mg/ml 10 ml VIAL (10 mg) IV SLOW PU ONE (15:15)
[2024-04-02 06:15] LABS: ABS Basophils 0.1 10^3/uL (0.0-0.1); ABS Eosinophils 0.2 10^3/uL (0.0-0.5); ABS Lymphocytes 2.2 10^3/uL (1.0-4.8); ABS Monocytes 0.4 10^3/uL (0.0-0.9); ABS Neutrophils 4.9 10^3/uL (1.5-7.6); Eosinophil % 2.4 %; Hematocrit 40.3 % (35-45); Hemoglobin 13.2 g/dL (11.5-14.3); Mean Corpuscular Hgb Conc 32.6 g/dL (31-36); Mean Platelet Volume 8.3 fL (7.5-11.2); Nucleated Red Blood Cells % 0.1 %/100WBC (0.0-0.8); Platelet Count 210 10^3/uL (150-450); Red Blood Count 4.38 10^6/uL (3.63-4.92); Red Cell Distribution Width 14.5 % (12-17); White Blood Count 7.7 10^3/uL (3.8-11.8)
[2024-04-02 06:42] LABS: Calcium 8.8 mg/dL (8.6-10.3); Creatinine, Serum 0.96 mg/dL (0.51-0.95); Magnesium 1.9 mg/dL (1.9-2.7); Potassium 3.7 mmol/L (3.5-5.0)
[2024-04-02 10:22] VITALS: BP 149/63
[2024-04-05 16:41] LABS: Renin <0.6 ng/mL/h
== END 2024-04-02 12:30 | disposition home or self-care (01) | DRG 206 ==
LOC: ED 04:26 → EDHOLD 04:26 → MEDTELE 14:34 → SUATTDRO 03-31 14:00
PROVIDERS: ADMIT Internal Medicine; ATTEND Internal Medicine